=== PATIENT | male | born 1975 | race Two or more races ===

== ENCOUNTER → 2021-04-07 14:12 | Outpatient (BNVA) | payer MEDICARE, MEDICAID, SELFPAY | PROVIDERS: PCP Internal Medicine; Visit Provider Nurse Practitioner Family | DX: M51.37 Other intervertebral disc degeneration, lumbosacral region (principal); M25.521 Pain in right elbow | CPT/HCPCS: 99212 ==

== ENCOUNTER 2021-04-15 11:50 | Outpatient (REF) | payer MEDICARE, MEDICAID, SELFPAY ==
--- NOTE | ~2021-04-15 | XR_ITS ---
EXAMINATION: XR LUMBOSACRAL SPINE CLINICAL INFORMATION: Other intravertebral disc degeneration COMPARISON: Lumbar spine x-rays 09/06/2015 TECHNIQUE: Three views of the lumbosacral spine. FINDINGS: 5 nonrib-bearing lumbar vertebral bodies are visualized. Alignment is within normal limits. Lumbar vertebral body heights are maintained. Moderately decreased L5/S1 disc space height, mildly progressed from 2016 imaging. Small osteophytes are also noted at the L5/S1 level and there are mild degenerative changes of the posterior elements of the lower lumbar spine present. Sacroiliac joints are symmetric. XR/XR lumbar spine 2-3V IMPRESSION: Mild degenerative changes of the lumbar spine at the L5/S1 level, mildly progressed from 2016 imaging.
[2021-04-15 12:59] LABS: Alanine Aminotransferase 35 U/L (0-40); Albumin Level 4.7 g/dL (3.5-5.0); Alkaline Phosphatase 75 U/L (39-117); Anion Gap 12 (12-20); Aspartate Amino Transferase 19 U/L (5-37); Bilirubin Total 0.4 mg/dL (0.0-1.0); Blood Urea Nitrogen 19 mg/dL (9-16); Calcium 9.5 mg/dL (8.4-10.2); Carbon Dioxide 26 mmol/L (22-29); Chloride 106 mmol/L (96-108); Estimated Glomerular Filt Rate > 60; Glucose Random 89 mg/dL (60-115); Potassium 4.6 mmol/L (3.3-5.1); Sodium 139 mmol/L (135-145); Total Protein 7.8 g/dL (6.5-8.0)
== END 2021-04-15 11:51 | disposition home or self-care (01) ==
LOC: HO.LAB 11:50
PROVIDERS: Visit Provider Nurse Practitioner Family
DX: M51.37 Other intervertebral disc degeneration, lumbosacral region (principal)
CPT/HCPCS: 36415; 72100; 80053

== ENCOUNTER → 2022-06-06 15:35 | Outpatient (BNVA) | payer MEDICARE, MEDICAID, SELFPAY | PROVIDERS: PCP Internal Medicine; Visit Provider Nurse Practitioner Family | DX: M51.37 Other intervertebral disc degeneration, lumbosacral region (principal); Z51.81 Encounter for therapeutic drug level monitoring | CPT/HCPCS: 99212 ==

== ENCOUNTER 2022-06-29 10:11 | Outpatient (REF) | payer MEDICARE, MEDICAID, SELFPAY ==
[2022-06-29 11:10] LABS: Alanine Aminotransferase 51 U/L (0-40); Albumin Level 4.7 g/dL (3.5-5.0); Alkaline Phosphatase 85 U/L (39-117); Anion Gap 15 (12-20); Aspartate Amino Transferase 24 U/L (5-37); Bilirubin Total 0.4 mg/dL (0.0-1.0); Blood Urea Nitrogen 21 mg/dL (9-16); Calcium 9.5 mg/dL (8.4-10.2); Carbon Dioxide 26 mmol/L (22-29); Chloride 103 mmol/L (96-108); Estimated Glomerular Filt Rate > 60; Glucose Random 201 mg/dL (60-115); Potassium 4.2 mmol/L (3.3-5.1); Sodium 140 mmol/L (135-145); Total Protein 7.6 g/dL (6.5-8.0)
== END 2022-06-29 10:12 | disposition home or self-care (01) ==
LOC: HO.LAB 10:11
PROVIDERS: Visit Provider Nurse Practitioner Family
DX: M51.37 Other intervertebral disc degeneration, lumbosacral region (principal); Z79.899 Other long term (current) drug therapy
CPT/HCPCS: 80053

== ENCOUNTER 2022-07-17 08:07 | Outpatient (REF) | payer MEDICARE, MEDICAID, SELFPAY ==
[2022-07-17 10:55] LABS: Amphetamine Screen Urine Not Detected (Not Detect); Barbiturates, Urine Not Detected (Not Detect); Benzodiazepines Screen Urine Not Detected (Not Detect); Cannabinoid Screen Urine POSITIVE (Not Detect); Cocaine Screen Urine Not Detected (Not Detect); Fentanyl, urine Not Detected (Not Detect); Opiate Screen Urine Not Detected (Not Detect); Phencyclidine Screen Urine Not Detected (Not Detect)
== END 2022-07-17 08:08 | disposition home or self-care (01) ==
LOC: HO.LAB 08:07
PROVIDERS: Visit Provider Nurse Practitioner Family
DX: Z51.81 Encounter for therapeutic drug level monitoring (principal); Z79.891 Long term (current) use of opiate analgesic
CPT/HCPCS: 80307; 80373

== ENCOUNTER 2023-01-02 09:37 | Outpatient (AMB) | payer MEDICARE, MEDICAID, SELFPAY ==
[2023-01-02 09:41] VITALS: BP 124/62; PULSE 91; O2SAT 96; BMI 38.4
--- NOTE | 2023-01-02 09:41 | A.OFFVIS_ITS ---
Intake Vital Signs 01/02/23 09:41 Height 5 ft 6 in Weight 238 lb 1.588 oz BMI 38.4 BP 124/62 Blood Pressure Location Rt brachial Position Sitting Pulse 91 Pulse Source Pulse Oximeter Pulse Oximetry (%) 96 Intake Visit Reasons: Low back pain Intake Note: Pt presents today for follow up, he was last seen by Marisela on 06/06/22. PT was ordered but pt did not book appt. He states he told Marisela he did not want to do PT. Still continues to have low back pain. Pensionholder Information Clerk Required: Yes Pensionholder Information Clerk Name: Radha [id number] Accompanied by: Self / Same As Patient Allergies No Known Allergies Allergy (Verified 01/02/23 09:44) Medication List - Last Reconciled 01/02/23 by Warren Aiken MD bupropion HCl 150 mg PO BID cetirizine 10 mg PO DAILY lidocaine 5% 1 patch topical DAILY prazosin 10 mg PO BEDTIME quetiapine (Seroquel) 300 mg PO DAILY tramadol 50 mg PO Q6H PRN HPI HPI Comments History of Present Illness Details Pt presents today for follow up, he was last seen by Marisela on 06/06/22. PT was ordered but pt did not book appt. He states he told Marisela he did not want to do PT. Still continues to have low back pain.? Continues to take tramadol 4 times a day. States that his back pain is worse with walking PFSH Family History Mother Diabetes Father Diabetes Cancer Maternal Grandmother Ovarian cancer Paternal Aunt Cancer Brother Cancer Social History Alcohol intake: current Alcohol intake frequency: does not drink Patient Tobacco Use Status: Current everyday Tobacco user Cigarettes Per Day: 8 Review of Systems [facility] Reports back pain Physical Exam Vital Signs: Last Vital Signs Pulse 91 01/02/23 09:41 BP 124/62 01/02/23 09:41 Pulse Ox 96 01/02/23 09:41 BMI result Body Mass Index 38.4 Const General: cooperative, healthy appearing and comfortable Nutritional Appearance: obese Orientation/consciousness: patient oriented x3 Limitations: no limitations HEENT Head: Yes normocephalic and Yes atraumatic Resp Effort & Inspection: normal respiratory effort and able to speak in complete sentences Skin General skin exam: no rashes or lesions noted Neuro General: patient oriented x3 Extrem Other: Lumbar paraspinal muscle tenderness to palpation, worse on the right Positive straight leg raise test on the right Results Reviewed Results Reviewed: Laboratory Tests 04/15/21 12:11 [facility] [place]/16/2015 CPK 168, CRP 0.32 rheumatoid factor < 15.0, sed rate 6, JENI negative Ordering Physician: Marisela Vu NP Date of Service: 04/15/21 Procedure(s): XR lumbar spine 2-3V Accession Number(s): [id number] EXAMINATION: XR LUMBOSACRAL SPINE CLINICAL INFORMATION: Other intravertebral disc degeneration COMPARISON: Lumbar spine x-rays 09/06/2015 TECHNIQUE: Three views of the lumbosacral spine. FINDINGS: 5 nonrib-bearing lumbar vertebral bodies are visualized. Alignment is within normal limits. Lumbar vertebral body heights are maintained. Moderately decreased L5/S1 disc space height, mildly progressed from 2016 imaging. Small osteophytes are also noted at the L5/S1 level and there are mild degenerative changes of the posterior elements of the lower lumbar spine present. Sacroiliac joints are symmetric. XR/XR lumbar spine 2-3V IMPRESSION: Mild degenerative changes of the lumbar spine at the L5/S1 level, mildly progressed from 2016 imaging. Assessment & Plan Assessment & Plan (1) Degenerative disc disease at L5-S1 level: Code(s): M51.37 - Other intervertebral disc degeneration, lumbosacral region Plan: Patient with chronic low back pain. X-ray from May 2021 with degenerative changes slightly progressed from previous imaging in 2016. Patient manage it his pain with tramadol. Will refill tramadol today. Has not had any side effects related to tramadol. I again offered pain management referral to patient. He states that he knows someone who received injections in the back and had side effects. He is not interested Follow-up in 6 months Plan I spent 16 minutes reviewing patient's chart, evaluating patient, ordering diagnostic workup, counseling patient and documenting in the chart Coding Level of Care Code Est Pt Level 3 (64693) Diagnoses Degenerative disc disease at L5-S1 level M51.37
== END 2023-01-02 10:29 | disposition home or self-care (01) ==
PROVIDERS: PCP Internal Medicine; Visit Provider Student in an Organized Health Care Education/Training Program
DX: M51.37 Other intervertebral disc degeneration, lumbosacral region (principal)
CPT/HCPCS: 99213

== ENCOUNTER → 2023-01-02 09:37 | Outpatient (BNVA) | payer MEDICARE, MEDICAID, SELFPAY | PROVIDERS: PCP Internal Medicine; Visit Provider Student in an Organized Health Care Education/Training Program | DX: M51.37 Other intervertebral disc degeneration, lumbosacral region (principal) | CPT/HCPCS: 99212 ==

== ENCOUNTER 2023-06-20 10:02 | Outpatient (REF) | payer MEDICARE, MEDICAID, SELFPAY ==
--- NOTE | ~2023-06-20 | US_ITS ---
EXAMINATION: US ABDOMEN COMPLETE CLINICAL INFORMATION: Elevated LFTs, fatty liver. COMPARISON: Ultrasound abdomen complete 09/27/2016. TECHNIQUE: Real-time imaging of the abdominal viscera. FINDINGS: PANCREAS: Normal. ABDOMINAL AORTA: The proximal, mid, and distal segments are normal in caliber. INFERIOR VENA CAVA: Visualized portions are normal. LIVER: The liver is normal in size. The liver contour is normal. There is diffuse increased liver parenchymal echogenicity, consistent with hepatic steatosis. There is focal sparing along the gallbladder fossa. There is no intrahepatic biliary duct dilatation seen. GALLBLADDER: Normal. The gallbladder is physiologically distended without evidence of stones, sludge, polyps, wall thickening or pericholecystic fluid. COMMON BILE DUCT: Normal in caliber measuring 0.3 cm in diameter. RIGHT KIDNEY: 2 mm parenchymal calcification in the mid right kidney. This does not appear to be a collecting system calculus. No hydronephrosis. No renal calculi or focal parenchymal lesions. The kidney measures 11.0 cm in maximum dimension. LEFT KIDNEY: Normal. No hydronephrosis. No renal calculi or focal parenchymal lesions. The kidney measures 11.0 cm in maximum dimension. SPLEEN: Normal. The spleen measures 10.1 cm in maximum dimension. FREE FLUID: None. US/US abdomen complete IMPRESSION: Hepatic steatosis. No morphologic cirrhosis or biliary ductal dilatation.
== END 2023-06-20 10:03 | disposition home or self-care (01) ==
LOC: HO.US 10:02
PROVIDERS: Visit Provider Internal Medicine
DX: R94.5 Abnormal results of liver function studies (principal); K76.0 Fatty (change of) liver, not elsewhere classified
CPT/HCPCS: 76700

== ENCOUNTER 2023-07-06 09:35 | Outpatient (REF) | payer MEDICARE, MEDICAID, SELFPAY ==
[2023-07-06 11:37] LABS: MANUAL DIFF FLAG NO
[2023-07-06 11:52] LABS: Basophils Absolute Auto 0.1 X10*3/uL (0.0-0.2); Basophils Percent Auto 0.9 % (0-2); Eosinophils Absolute Auto 0.4 X10*3/uL (0.0-0.4); Eosinophils Percent Auto 7.8 % (0-4); Hematocrit 48.9 % (42.0-52.0); Hemoglobin 16.1 g/dl (14.0-18.0); Imm Gran Abs Auto 0.02 X10*3/uL (0.00-0.03); Imm Gran Pct Auto 0.4 % (0.0-0.4); Lymphocytes Absolute Auto 2.6 X10*3/uL (1.2-4.9); Lymphocytes Percent Auto 49.5 % (20-40); Mean Corpuscular HGB Conc 32.9 g/dl (31.0-36.0); Mean Corpuscular Hemoglobin 30.3 pg (27.0-33.0); Mean Corpuscular Volume 92.1 fL (80.0-98.0); Mean Platelet Volume 10.2 fL (9.4-12.4); Monocytes Absolute Auto 0.4 X10*3/uL (0.1-1.2); Monocytes Percent Auto 8.1 % (2-11); Neutrophils Absolute Auto 1.8 x10*3/uL (2.0-8.3); Neutrophils Percent Auto 33.3 % (45-73); Platelet Count 223 X10*3/uL (160-400); Red Blood Count 5.31 X10*6/uL (4.60-5.80); Red Cell Distribution Width 13.1 % (11.0-16.0); White Blood Count 5.3 X10*3/uL (4.8-10.8)
[2023-07-06 12:09] LABS: Estimated Average Glucose 108 mg/dL; Hemoglobin A1c % 5.4 % (<6.0)
[2023-07-06 12:49] LABS: Alanine Aminotransferase 23 U/L (0-40); Albumin Level 4.6 g/dL (3.5-5.0); Alkaline Phosphatase 85 U/L (39-117); Anion Gap 12 (12-20); Aspartate Amino Transferase 17 U/L (5-37); Bilirubin Total 0.4 mg/dL (0.0-1.0); Blood Urea Nitrogen 14 mg/dL (9-16); Calcium 9.7 mg/dL (8.4-10.2); Carbon Dioxide 29 mmol/L (22-29); Chloride 105 mmol/L (96-108); Cholesterol 197 mg/dL (<200); Estimated Glomerular Filt Rate > 60; Glucose Random 95 mg/dL (60-115); HDL Cholesterol 34 mg/dL (>40); LDL Cholesterol Calculated 133 mg/dL (<100); Potassium 4.8 mmol/L (3.3-5.1); Sodium 141 mmol/L (135-145); Triglycerides 154 mg/dL (<150)
[2023-07-06 13:12] LABS: TSH reflex Free T4 2.61 uIU/mL (0.32-4.0)
[2023-07-06 13:52] LABS: CT PCR NOT DETECTED (Not Detect.); NG PCR NOT DETECTED (Not Detect.)
[2023-07-07 04:15] LABS: Syphilis Screen Nonreactive (Nonreactive)
[2023-07-07 04:29] LABS: HBS Num1 0.37 mIU/mL (0-7.99); HBc Num1 0.11 S/CO (0.00-0.79); HBsAGNum1 0.38 S/CO (0.00-0.99); Hepatitis B Core Antibody Nonreactive (Nonreactive); Hepatitis B Surface Antigen Negative (Negative); ~HepC Num1 0.37 S/CO (0.00-0.79); ~Hepatitis B Surface Antibody NONREACTIVE (Nonreactive); ~Hepatitis C Antibody Nonreactive (Nonreactive)
[2023-07-10 17:47] LABS: VITAMIN D (1,25 OH) D3 49 pg/mL; Vit D (1,25-Dihydroxy) Total 49 pg/mL (18-72); Vitamin D (1,25 OH) D2 <8 pg/mL
[2023-07-11 11:43] LABS: HIV 1 Antibody NEGATIVE; HIV 2 Antibody NEGATIVE
[2023-07-11 11:44] LABS: HIV-1 RNA TMA Qualitative Not Detected
== END 2023-07-06 09:36 | disposition home or self-care (01) ==
LOC: HO.HHCL 09:35
PROVIDERS: Visit Provider Student in an Organized Health Care Education/Training Program
DX: Z00.00 Encounter for general adult medical examination without abnormal findings (principal); Z20.2 Contact with and (suspected) exposure to infections with a predominantly sexual mode of transmission; E78.5 Hyperlipidemia, unspecified; Z13.21 Encounter for screening for nutritional disorder; Z13.1 Encounter for screening for diabetes mellitus; Z13.29 Encounter for screening for other suspected endocrine disorder
CPT/HCPCS: 0353U; 80053; 80061; 82652; 83036; 84443; 85025; 86701; 86702; 86704; 86706; 86780; 86803; 87340

== ENCOUNTER 2023-07-09 08:56 | Outpatient (REF) | payer MEDICARE, MEDICAID, SELFPAY ==
[2023-07-09 09:25] LABS: MANUAL DIFF FLAG NO
[2023-07-09 10:45] LABS: Basophils Percent Auto 0.8 % (0-2); Eosinophils Absolute Auto 0.4 X10*3/uL (0.0-0.4); Eosinophils Percent Auto 7.9 % (0-4); Hematocrit 45.2 % (42.0-52.0); Hemoglobin 15.1 g/dl (14.0-18.0); Imm Gran Abs Auto 0.02 X10*3/uL (0.00-0.03); Imm Gran Pct Auto 0.4 % (0.0-0.4); Lymphocytes Absolute Auto 2.2 X10*3/uL (1.2-4.9); Lymphocytes Percent Auto 44.6 % (20-40); Mean Corpuscular HGB Conc 33.4 g/dl (31.0-36.0); Mean Corpuscular Hemoglobin 30.5 pg (27.0-33.0); Mean Corpuscular Volume 91.3 fL (80.0-98.0); Mean Platelet Volume 10.4 fL (9.4-12.4); Monocytes Absolute Auto 0.4 X10*3/uL (0.1-1.2); Monocytes Percent Auto 8.3 % (2-11); Neutrophils Absolute Auto 1.9 x10*3/uL (2.0-8.3); Platelet Count 219 X10*3/uL (160-400); Red Blood Count 4.95 X10*6/uL (4.60-5.80); Red Cell Distribution Width 12.9 % (11.0-16.0)
[2023-07-09 11:01] LABS: INTERNATIONAL NORM RATIO 0.9 (0.9-1.1); Prothrombin Time 10.5 SEC (11.1-13.3)
[2023-07-09 11:35] LABS: Alanine Aminotransferase 21 U/L (0-40); Albumin Level 4.5 g/dL (3.5-5.0); Alkaline Phosphatase 81 U/L (39-117); Aspartate Amino Transferase 15 U/L (5-37); Bilirubin Direct 0.2 mg/dL (0.0-0.5); Bilirubin Total 0.4 mg/dL (0.0-1.0); HBS Num1 0.33 mIU/mL (0-7.99); HBc Num1 0.09 S/CO (0.00-0.79); HBsAGNum1 0.39 S/CO (0.00-0.99); Hepatitis B Core Antibody Nonreactive (Nonreactive); Hepatitis B Surface Antigen Negative (Negative); Iron 119 mcg/dL (45-160); Percent Iron Saturation 42 % (15-50); Total Iron Binding Capacity 284 mcg/dL (228-428); Unsaturated Iron Binding 165 ug/dL; ~Hepatitis B Surface Antibody NONREACTIVE (Nonreactive); ~Hepatitis C Antibody Nonreactive (Nonreactive)
[2023-07-09 11:36] LABS: Ferritin 220 ng/mL (20-250)
[2023-07-19 11:04] LABS: FIB-ALT 8 U/L (9-46); FIB-Alpha-2-Macroglobulin 150 mg/dL (106-279); FIB-Apolipoprotein A1 122 mg/dL (94-176); FIB-GGT 23 U/L (3-95); FIB-Haptoglobin 264 mg/dL (43-212); FIB-Total Bilirubin 0.4 mg/dL (0.2-1.2); Liver Fibrosis Score 0.09; Liver Fibrosis Stage F0; Nec Inflam Act Grade A0; Nec Inflam Act Score 0.01
== END 2023-07-09 08:57 | disposition home or self-care (01) ==
LOC: HO.LAB 08:56
PROVIDERS: PCP Internal Medicine; Visit Provider Internal Medicine
DX: R94.5 Abnormal results of liver function studies (principal); K76.0 Fatty (change of) liver, not elsewhere classified
CPT/HCPCS: 36415; 80076; 81596; 82728; 83540; 85025; 85610; 86704; 86706; 86803; 87340

== ENCOUNTER 2023-08-21 09:00 | Outpatient (AMB) | payer MEDICARE, MEDICAID, SELFPAY ==
[2023-08-21 09:15] VITALS: BP 104/70; PULSE 87; O2SAT 95; BMI 35.2
--- NOTE | 2023-08-21 09:15 | A.OFFVIS_ITS ---
Vital Signs 08/21/23 09:15 Height 5 ft 6 in Weight 217 lb 13.067 oz BMI 35.2 BP 104/70 Blood Pressure Location Rt brachial Position Sitting Pulse 87 Pulse Source Pulse Oximeter Pulse Oximetry (%) 95 Oxygen Delivery Method Room Air Intake Visit Reasons: Back Pain follow up Intake Note: Patient last seen 01/02/23 presents today for follow up. On tramadol for back pain Air Control/Anti Air Warfare Officer Required: Yes Air Control/Anti Air Warfare Officer Language: Superannuation Funds Manager Name: Mary Anne Huber - form signed Accompanied by: Significant Other Allergies No Known Allergies Allergy (Verified 08/21/23 09:23) Medication List - Last Reconciled 08/21/23 by Warren Aiken MD atorvastatin 20 mg PO DAILY bupropion HCl SR 150 mg PO BID cetirizine 10 mg PO DAILY gabapentin 400 mg PO TID lidocaine 5% 1 patch topical DAILY prazosin 10 mg PO BEDTIME quetiapine (Seroquel) 300 mg PO DAILY tramadol 50 mg PO Q6H PRN HPI Comments Details: 48-year-old male lumbar osteoarthritis presents for follow-up. He presents with his . He states that he has been having more severe right lower back pain associated with muscle spasm and cramping. He continues to take the tramadol regularly. Requesting lidocaine patch PFSH Family History Mother Diabetes Father Diabetes Cancer Maternal Grandmother Ovarian cancer Paternal Aunt Cancer Brother Cancer Social History Alcohol intake: current Alcohol intake frequency: does not drink Patient Tobacco Use Status: Current everyday Tobacco user Cigarettes Per Day: 8 Review of Systems [facility] [place] Reports back pain Physical Exam Vital Signs: Last Vital Signs Pulse 87 08/21/23 09:15 BP 104/70 08/21/23 09:15 Pulse Ox 95 08/21/23 09:15 Oxygen Delivery Method Room Air 08/21/23 09:15 BMI result Body Mass Index 35.2 Const General: cooperative, healthy appearing and comfortable Nutritional Appearance: obese Orientation/consciousness: patient oriented x3 Limitations: no limitations HEENT Head: Yes normocephalic and Yes atraumatic Resp Effort & Inspection: normal respiratory effort and able to speak in complete sentences Skin General skin exam: no rashes or lesions noted Neuro General: patient oriented x3 Extrem Other: Lumbar paraspinal muscle tenderness to palpation, worse on the right Positive straight leg raise test on the right Results Reviewed Results Reviewed: Laboratory Tests 04/15/21 12:11 [facility] [place] labs 09/16/2015 CPK 168, CRP 0.32 rheumatoid factor < 15.0, sed rate 6, JENI negative Ordering Physician: Marisela Vu NP Date of Service: 04/15/21 Procedure(s): XR lumbar spine 2-3V Accession Number(s): [id number] EXAMINATION: XR LUMBOSACRAL SPINE CLINICAL INFORMATION: Other intravertebral disc degeneration COMPARISON: Lumbar spine x-rays 09/06/2015 TECHNIQUE: Three views of the lumbosacral spine. FINDINGS: 5 nonrib-bearing lumbar vertebral bodies are visualized. Alignment is within normal limits. Lumbar vertebral body heights are maintained. Moderately decreased L5/S1 disc space height, mildly progressed from 2016 imaging. Small osteophytes are also noted at the L5/S1 level and there are mild degenerative changes of the posterior elements of the lower lumbar spine present. Sacroiliac joints are symmetric. XR/XR lumbar spine 2-3V IMPRESSION: Mild degenerative changes of the lumbar spine at the L5/S1 level, mildly progressed from 2016 imaging. Assessment & Plan Assessment & Plan (1) Degenerative disc disease at L5-S1 level: Code(s): M51.37 - Other intervertebral disc degeneration, lumbosacral region Category: Medical Plan: 48-year-old male with degenerative disc disease of her L-spine returns for follow-up. Remains on tramadol 4 times a day. His back pain has progressed slightly over the last few weeks. Will prescribe a lidocaine patch. Advised patient that it might get denied by insurance and he can try [id number] Salonpas patch. Patient was evaluated by pain management in the past and did not want to do injections. This patient to follow-up with his PCP and if his back pain progresses he can consider evaluation by a spine surgeon. Plan I spent 16 minutes reviewing patient's chart, evaluating patient, counseling patient and documenting in the chart Medications: Refilled lidocaine 5% leave on most painful area for up to 12 hrs then take off for 12 hours. 1 patch topical DAILY 30 ea 1RF Coding Level of Care Code Est Pt Level 3 (33055) Diagnoses Degenerative disc disease at L5-S1 level M51.37
== END 2023-08-21 09:41 | disposition home or self-care (01) ==
PROVIDERS: PCP Internal Medicine; Visit Provider Student in an Organized Health Care Education/Training Program
DX: M51.37 Other intervertebral disc degeneration, lumbosacral region (principal)
CPT/HCPCS: 99213

== ENCOUNTER → 2023-08-21 09:00 | Outpatient (BNVA) | payer MEDICARE, MEDICAID, SELFPAY | PROVIDERS: PCP Internal Medicine; Visit Provider Student in an Organized Health Care Education/Training Program | DX: M51.37 Other intervertebral disc degeneration, lumbosacral region (principal) | CPT/HCPCS: 99212 ==

== ENCOUNTER 2023-09-19 06:05 | Day surgery (SDC) | payer MEDICARE, MEDICAID, SELFPAY ==
--- NOTE | 2023-09-18 11:37 | HO.ANESPROP2 ---
Documented by User: Rebekah Baires NP 09/18/23 11:38 HPI - Anesthesia Eval Consult details Narrative: 48yo M for Colonoscopy PMF Active Problems Active Problems: All Active Problems Schizophrenia (Acute) Encounter for medication monitoring (Acute) Degenerative disc disease at L5-S1 level (Acute) Family History Family History Mother Diabetes Father Diabetes Cancer Maternal Grandmother Ovarian cancer Paternal Aunt Cancer Brother Cancer Social History Social History Alcohol intake: current Alcohol intake frequency: does not drink Patient Tobacco Use Status: Current everyday Tobacco user Cigarettes Per Day: 8 Advance Directives: No Advance Directives Information Provided: Yes Meds Allergies Allergy/AdvReac Type Severity Reaction Status Date / Time No Known Allergies Allergy Verified 09/19/23 07:01 Home Medications ?Medication ?Instructions ?Recorded ?Confirmed ?Last Taken ?Type prazosin 5 mg capsule 10 mg PO BEDTIME 05/13/21 09/19/23 Unknown History quetiapine 300 mg tablet (Seroquel) 300 mg PO DAILY 05/13/21 09/19/23 Unknown History bupropion HCl 150 mg tablet,12 hr 150 mg PO BID 01/02/23 09/19/23 Unknown History sustained-release cetirizine 10 mg tablet 10 mg PO DAILY 01/02/23 09/19/23 Unknown History atorvastatin 20 mg tablet 20 mg PO DAILY 08/21/23 09/19/23 Unknown History gabapentin 400 mg capsule 400 mg PO TID 08/21/23 09/19/23 Unknown History Assessment and Plan Assessment Anesthesia Assessment: Chart Reviewed Documented by User: Kaleb Barrett MD 09/19/23 07:39 PMFSH Family History Family History Mother Diabetes Father Diabetes Cancer Maternal Grandmother Ovarian cancer Paternal Aunt Cancer Brother Cancer Family history of problems with anesthesia: No Surgical History History of Problems with Anesthesia: No Social History Social History Alcohol intake: current Alcohol intake frequency: does not drink Patient Tobacco Use Status: Current everyday Tobacco user Cigarettes Per Day: 8 Advance Directives: No Advance Directives Information Provided: Yes Meds Allergies Allergy/AdvReac Type Severity Reaction Status Date / Time No Known Allergies Allergy Verified 09/19/23 07:01 Home Medications ?Medication ?Instructions ?Recorded ?Confirmed ?Last Taken ?Type prazosin 5 mg capsule 10 mg PO BEDTIME 05/13/21 09/19/23 Unknown History quetiapine 300 mg tablet (Seroquel) 300 mg PO DAILY 05/13/21 09/19/23 Unknown History bupropion HCl 150 mg tablet,12 hr 150 mg PO BID 01/02/23 09/19/23 Unknown History sustained-release cetirizine 10 mg tablet 10 mg PO DAILY 01/02/23 09/19/23 Unknown History atorvastatin 20 mg tablet 20 mg PO DAILY 08/21/23 09/19/23 Unknown History gabapentin 400 mg capsule 400 mg PO TID 08/21/23 09/19/23 Unknown History Exam Airway Mallampati Class: II TM Dist: >3cm Neck ROM: Full Loose/Missing/Broken Teeth: No Heart: ok Lungs: ok Assessment and Plan Assessment Anesthesia Assessment: Anesthesia Plan Discussed Final Anesthetic Review Family History of Problems with Anesthesia: No History of Problems with Anesthesia: No NPO: Yes ASA Class: II Final Preanesthetic Review: No Changes in Pt Med Stat, Meds/Allgs Chart Reviewed, Consent Obtained/Reviewed and Anes Risks/Benef Reviewed Patient Risk: Intermediate Procedure Risk: Low Anesthetic Plan Anesthetic Plan: MAC: and Agree w/ Assess. and Plan Disposition: Standard PACU
[2023-09-19 07:02] VITALS: BMI 34.5
[2023-09-19 07:09] VITALS: BP 107/63; PULSE 72; RESP 16; TEMP 36.9; O2SAT 97
[2023-09-19] MEDS: Lactated Ringers 1,000 ML 100 ML IVCONT (07:13)
--- NOTE | 2023-09-19 07:51 | PC.NURSE ---
24hr update documented on paper
[2023-09-19 08:28] VITALS: BP 96/47; PULSE 76; RESP 22; TEMP 36.2; O2SAT 95
--- NOTE | 2023-09-19 08:34 | P.BOP_ITS ---
Brief Operative Note Date of Service: 09/19/23 Pre-op diagnosis: Screening Post-op diagnosis: other (Diverticulosis) Procedure: Colonoscopy to the cecum Surgeon: Chacho Galeano MD Anesthesia: MAC Was an Body Service Team Member used for this Procedure?: No Estimated blood loss (mL): 0 Pathology: none sent Condition: stable Disposition: PACU
[2023-09-19 08:43] VITALS: BP 95/61; PULSE 65; RESP 18; TEMP 36.2; O2SAT 98
--- NOTE | 2023-09-19 08:54 | OP_ITS ---
DATE OF SERVICE: 09/19/2023 SURGEON: Chacho Galeano MD INDICATIONS: The patient presents for evaluation of colorectal cancer screening. Full consent obtained from him for this, including risks of bleeding and perforation. PREOPERATIVE DIAGNOSIS: Colorectal cancer screening. POSTOPERATIVE DIAGNOSIS: Colorectal cancer screening, occasional sigmoid diverticulosis, small internal hemorrhoids. PROCEDURE PERFORMED: Colonoscopy to the cecum. ESTIMATED BLOOD LOSS: COMPLICATIONS: ANESTHESIA: Monitored anesthesia care. ASSISTANTS: SPECIMENS: DESCRIPTION OF PROCEDURE: The patient was placed in left lateral decubitus position. The digital rectal exam revealed no abnormalities. The Olympus video pediatric colonoscope was entered into the rectum and advanced easily to the cecum. Once in the cecum, I did identify normal-appearing cecal pouch with appendiceal orifice and a normal-appearing ileocecal valve. The entire cecum and ileocecal valve appeared normal. The scope was slowly withdrawn assessing all mucosal surfaces carefully. For the most part, preparation was excellent throughout the colon, although there were some small areas of liquid in residual debris that had to be irrigated and suctioned away. I did not visualize any sign of polyps, colitis, nor angiodysplasia. There were occasional diverticula in the sigmoid colon. In the rectum, scope was retroflexed visualizing some small internal hemorrhoids, but no other pathology. The rectal mucosa appeared normal. The scope was straightened and withdrawn from the patient. He tolerated the procedure well and was returned to recovery area in stable condition. IMPRESSION: 1. Occasional sigmoid diverticulosis. 2. Internal hemorrhoids. PLAN: Given the negative exam, I would recommend a followup coloscopy in 10 years. He will otherwise see me on a p.r.n. basis. Chacho Galeano MD RMW/JESSICAL / [id number]
== END 2023-09-19 09:12 | disposition home or self-care (01) ==
PROVIDERS: PCP Internal Medicine; Visit Provider Internal Medicine
PROC: 0DJD8ZZ Inspection of Lower Intestinal Tract, Via Natural or Artificial Opening Endoscopic (ICD-10-PCS; CPT 45378; principal; 2023-09-19 07:30)
DX: Z12.11 Encounter for screening for malignant neoplasm of colon (principal); K57.30 Diverticulosis of large intestine without perforation or abscess without bleeding; K64.8 Other hemorrhoids; K76.0 Fatty (change of) liver, not elsewhere classified; F17.210 Nicotine dependence, cigarettes, uncomplicated
CPT/HCPCS: G0121; J2704

== ENCOUNTER → 2024-02-04 14:06 | Outpatient (BNVA) | payer MEDICARE, MEDICAID, SELFPAY | PROVIDERS: PCP Student in an Organized Health Care Education/Training Program; Visit Provider Psychiatry & Neurology Neurology ==

== ENCOUNTER 2024-02-18 12:47 | Outpatient (AMB) | payer MEDICARE, MEDICAID, SELFPAY ==
--- NOTE | 2024-02-18 12:58 | A.OFFVIS_ITS ---
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 Allergies No Known Allergies Allergy (Verified 02/18/24 13:00) Medication List - Last Reconciled 02/18/24 by Kianna Jaquez PA-C atorvastatin 20 mg PO DAILY bupropion HCl SR 150 mg PO BID cetirizine 10 mg PO DAILY gabapentin 400 mg PO TID lidocaine 5% 1 patch topical DAILY prazosin 10 mg PO BEDTIME quetiapine (Seroquel) 300 mg PO DAILY tramadol 50 mg PO Q6H PRN HPI Comments Details: 48 year old male with history of witnessed apneas, referred to us by his PCP for a Polysomnography and Evaluation. Bermudian speaking accompanied by his and Zabrina GONZALEZ interprets history. He has a history of schizophrenia managed by Dr. Mukul Doherty for 8 years. He has been snoring loudly per his who witnessed his apneas, gasping for air, and choking repeatedly. He continues to be more forgetful. He was told to sleep downstairs as he often disrupts their child's and 's sleep. His legs and arms tremble during sleep, he hallucinates as if someone is chasing him with a Machede, and has frequent nightmares. He denies GERD, morning headaches, and excessive daytime sleepiness. 7pm goes to bedtime and wakes up at 7am, denies nocturia, urgency or frequency. His mood is calm at baseline, with mild depression. PCP checked Labs recently TSH / B12/ Vit D/ Iron, all normal. His diet at baseline is bad, he eats meals late at night, and doesn't drink enough water. His BMI is elevated, smokes 8-19 cigarettes daily, MJ 6-7 blunts daily. Denies Alcohol intake. Mallampti score is 4. Patient is seen by myself with Dr. Shay. [facility] Medical History (Updated 02/18/24 @ 14:01 by Kianna Jaquez PA-C) Memory loss Hyperlipidemia Depression Arthritis Family History Mother Diabetes Father Diabetes Cancer Maternal Grandmother Ovarian cancer Paternal Aunt Cancer Brother Cancer Social History Alcohol intake: current Alcohol intake frequency: does not drink Patient Tobacco Use Status: Current everyday Tobacco user Cigarettes Per Day: 8 Review of Systems Const All systems reviewed & are unremarkable except as noted in HPI and below ENT Reports Normal hearing present Neuro Reports Normal hearing present Physical Exam Const General: cooperative, comfortable and no acute distress Nutritional Appearance: average body habitus and obese Orientation/consciousness: patient oriented x3 HEENT Teeth and gingiva: other (Mallampti score of 4) Eyes Pupils: Equal, round and reactive pupils present Neck Neck: Yes full ROM Resp Effort & Inspection: normal respiratory effort and able to speak in complete sentences Neuro General: patient oriented x3 and deep tendon reflexes 2+ bilaterally Cranial nerves: Yes CN's II-XII intact bilaterally, Yes Equal, round and reactive pupils present, Yes Normal accommodation reflex present, Yes Bilaterally intact EOM present, Yes Normal facial strength present, Yes Midline tongue present, Yes Normal hearing present, Yes Ability to bilaterally rotate head present and Yes Ability to bilaterally elevate shoulders present Cognition (Neuro): normal cognition Gait exam (Neuro): Normal gait present Motor exam (neuro): 5/5 motor strength present throughout, Pronator motor function not present and Normal motor muscle tone present throughout Deep tendon reflexes (DTR's): Right triceps reflex intensity grade: 2+, Left triceps reflex intensity grade: 2+, Rt Biceps (C5, C6): 2+, Left biceps reflex intensity grade: 2+, Right brachioradialis reflex intensity grade: 2+, Left brachioradialis reflex intensity grade: 2+, Right patellar reflex intensity grade: 2+ and Left patellar reflex intensity grade: 2+ Coordination: [id number] test normal Assessment & Plan Assessment & Plan (1) Difficulty sleeping: Code(s): G47.9 - Sleep disorder, unspecified Category: Medical (2) Periodic limb movements of sleep: Code(s): G47.61 - Periodic limb movement disorder Category: Medical (3) Sleep talking: Code(s): G47.8 - Other sleep disorders Category: Medical Plan Patient Education: Obstructive Sleep Apnea Evaluation, do not smoke Marijuana 2-3 days prior to study during day of study. BMI is elevated, smoking cessation is available if and when you are ready to stop smoking, set a date and we will set up counselor visits. Will send him for in lab sleep study Polysomnography to evaluate for PLMD, thrashing behavior, abnormal sleep behaviors, leg movements and cognitive decline. Orders: Orders RT PSG in-lab sleep study 02/18/24 G47.61 - Periodic limb movement disorder, G47.8 - Other sleep disorders, G47.9 - Sleep disorder, unspecified Coding Level of Care Code New Pt Level 4 (29443) Diagnoses Difficulty sleeping G47.9 Periodic limb movements of sleep G47.61 Sleep talking G47.8 Time Spent (min) 30 Comment Evaluation of Obstructive Sleep Apnea Obstructive Sleep Apnea Patient is having a sleep study for: snoring, witnessed apneas, daytime sleepiness, leg movement and apnea Sleeping on side has: improves symptoms Patient goes to sleep at: Sides best to breath on, back it is difficult to sleep. Patient wakes at: 7am How does the patient feel upon waking: rested Patient has morning headaches: No Patient naps during the day: No Patient falls asleep inappropriately during the day: No Patient has drowsiness while driving: No Patient falls asleep while driving: No Patient has difficulty concentrating during activity such as watching TV or reading: Yes There is a family history of obstructive sleep apnea: Yes Narcoleptic symptoms: Reports unusual limb movements at night and Other (schizophrenia -and yelling, moaning sounds) Patient has had a polysomnogram: No CPAP/BIPAP use: not prescribed ASV / VPAP titration: No Sleep Questionnaire Difficulty falling asleep: No Difficulty staying asleep?: No Number of arousals: too many to count Snoring: Yes (loud) Witnessed apneas: Yes Gasping arousals: Yes Nocturia: No GERD: No Vivid dreams: Yes Acting out dreams: Yes Abnormal behavior in sleep: Yes Abnormal movements in sleep: Yes Morning headaches: No Excessive daytime sleepiness: No Daytime naps: No Restless legs: No Hallucinations: Yes Sleep paralysis: No Drop attacks: No Sleep Study: No CPAP: No
== END 2024-02-18 13:47 | disposition home or self-care (01) ==
PROVIDERS: PCP Student in an Organized Health Care Education/Training Program; Visit Provider Psychiatry & Neurology Neurology
DX: G47.9 Sleep disorder, unspecified (principal); G47.61 Periodic limb movement disorder; G47.8 Other sleep disorders
CPT/HCPCS: 99204

== ENCOUNTER → 2024-02-18 12:47 | Outpatient (BNVA) | payer MEDICARE, MEDICAID, SELFPAY | PROVIDERS: PCP Student in an Organized Health Care Education/Training Program; Visit Provider Psychiatry & Neurology Neurology | DX: G47.9 Sleep disorder, unspecified (principal); G47.8 Other sleep disorders; G47.61 Periodic limb movement disorder; R41.3 Other amnesia | CPT/HCPCS: 99202 ==

== ENCOUNTER 2024-03-26 09:11 | Outpatient (AMB) | payer MEDICARE, MEDICAID, SELFPAY ==
--- NOTE | 2024-03-26 09:48 | MHC.OFFVIS ---
Vital Signs 03/26/24 09:56 Height 5 ft 7 in Weight 211 lb 10.3 oz BMI 33.1 BP 120/64 Blood Pressure Location Rt brachial Position Sitting Respiration 18 Pulse 83 Pulse Source Pulse Oximeter Pulse Oximetry (%) 97 Oxygen Delivery Method Room Air Intake Visit Reasons: DDD Intake Note: Patient presents for DDD. E Commerce Solution Architect Required: Yes E Commerce Solution Architect Language: Assurance Officer Services: E Commerce Solution Architect Present E Commerce Solution Architect Name: Luciana [id number] Information Interpreted: non-clinical & clinical Allergies No Known Allergies Allergy (Verified 03/26/24 09:55) Medication List - Last Reconciled 03/26/24 by Warren Aiken MD atorvastatin 20 mg PO DAILY bupropion HCl SR 150 mg PO BID cetirizine 10 mg PO DAILY gabapentin 400 mg PO TID lidocaine 5% 1 patch topical DAILY prazosin 10 mg PO BEDTIME quetiapine (Seroquel) 300 mg PO DAILY tramadol 50 mg PO Q6H PRN HPI Comments Details: 49-year-old male lumbar osteoarthritis presents for follow-up. He states that he continues to take tramadol 50 mg 4 times a day. It continues to provide some relief. He states that he was evaluated by spine surgeon and he stated that no surgery was recommended. Patient does not want to pursue injections. He stated that when evaluated by his PCP last visit they suggested changing his tramadol to Percocet PFSH Medical History Memory loss Hyperlipidemia Depression Arthritis Family History Mother Diabetes Father Diabetes Cancer Maternal Grandmother Ovarian cancer Paternal Aunt Cancer Brother Cancer Social History Alcohol intake: current Alcohol intake frequency: does not drink Patient Tobacco Use Status: Current everyday Tobacco user Cigarettes Per Day: 8 Review of Systems Musc Reports back pain Physical Exam Vital Signs: Last Vital Signs Pulse 83 03/26/24 09:56 Resp 18 03/26/24 09:56 BP 120/64 03/26/24 09:56 Pulse Ox 97 03/26/24 09:56 Oxygen Delivery Method Room Air 03/26/24 09:56 BMI result Body Mass Index 33.1 Const General: cooperative, healthy appearing and comfortable Nutritional Appearance: obese Orientation/consciousness: patient oriented x3 Limitations: no limitations HEENT Head: Yes normocephalic and Yes atraumatic Resp Effort & Inspection: normal respiratory effort and able to speak in complete sentences Skin General skin exam: no rashes or lesions noted Neuro General: patient oriented x3 Extrem Other: Lumbar paraspinal muscle tenderness to palpation, worse on the right Positive straight leg raise test on the right Assessment & Plan Assessment & Plan (1) Degenerative disc disease at L5-S1 level: Code(s): M51.37 - Other intervertebral disc degeneration, lumbosacral region Category: Medical Plan: 49-year-old male with degenerative disc disease returns for follow-up. Remains on tramadol 4 times a day. He states that when evaluated by his PCP last visit they suggested changing his tramadol to Percocet. Patient has refused corticosteroid injections in the past. Patient states that when evaluated by spine surgeon, no surgery was recommended. continue with tramadol 50 mg q.i.d.. Follow-up in 6 months Plan I spent 16 minutes reviewing patient's chart, evaluating patient, counseling patient and documenting in the chart Coding Level of Care Code Est Pt Level 3 (29608) Diagnoses Degenerative disc disease at L5-S1 level M51.37
[2024-03-26 09:56] VITALS: BP 120/64; PULSE 83; RESP 18; O2SAT 97; BMI 33.1
== END 2024-03-26 10:25 | disposition home or self-care (01) ==
PROVIDERS: PCP Student in an Organized Health Care Education/Training Program; Visit Provider Student in an Organized Health Care Education/Training Program
DX: M51.379 Other intervertebral disc degeneration, lumbosacral region without mention of lumbar back pain or lower extremity pain (principal)
CPT/HCPCS: 99213

== ENCOUNTER → 2024-03-26 09:11 | Outpatient (BNVA) | payer MEDICARE, MEDICAID, SELFPAY | PROVIDERS: PCP Student in an Organized Health Care Education/Training Program; Visit Provider Student in an Organized Health Care Education/Training Program | DX: M51.379 Other intervertebral disc degeneration, lumbosacral region without mention of lumbar back pain or lower extremity pain (principal); Z79.891 Long term (current) use of opiate analgesic | CPT/HCPCS: 99212 ==

== ENCOUNTER → 2024-04-06 20:30 | Outpatient (REF) | payer MEDICARE, MEDICAID, SELFPAY ==
--- OUTSIDE RECORDS SUMMARY | 2024-04-06 21:22 | XMS_ITS ---
Author Organization [facility] Address [address] [place] [address] Care Team Providers Care Instantizer Operator Name Role Phone Morgan Orozco Primary Care Provider Chacho Prieto [phone] REASON FOR VISIT whole family sick Encounters Encounter Location Date Provider Diagnosis [facility] [address] [place] [address] 02/13/2023 Chacho Galeano PLAN OF TREATMENT No Information
--- OUTSIDE RECORDS SUMMARY | 2024-04-06 21:22 | XMS_ITS ---
Author Organization [facility] Address [address] [place] [address] Care Team Providers Care Oil Well Driller Name Role Phone Morgan Orozco Primary Care Provider Chacho Prieot Unavailable [phone] ALLERGIES No Known Allergies REASON FOR VISIT Patient presents today for colon screening MEDICATIONS Medication SIG (Take, Route, Frequency, Duration) Notes Start Date End Date Status buPROPion HCl ER (SR) 150 MG TAKE 1 TABLET BY MOUTH TWICE DAILY Oral for 30 Active QUEtiapine Fumarate 300 MG TAKE 1 TABLET BY MOUTH AT BEDTIME Oral for 30 Active traMADol HCl 50 MG TAKE 1 TABLET BY MOUTH EVERY 6 HOURS NEEDED FOR PAIN Oral for 30 M5137,Unavailabl e Active Prazosin HCl 5 MG TAKE 1 CAPSULE BY MOUTH AT BEDTIME NEEDED Oral for 30 Active SOCIAL HISTORY Tobacco Use: Social History Observation Description Date Details (start date - stop date) Current Smoker NA - NA Sex Assigned At : Social History Observation Description Sex Assigned At Unknown Tobacco Use/Smoking Question Answer Notes Patient is a current smoker How many cigarettes a day do you smoke? 6-10 Alcohol Screen Question Answer Notes Did you have a drink containing alcohol in the p ast year? No Points 0 Interpretation Negative PROBLEMS Problem Type ICD Code Onset Dates Problem Status W/U Status Risk SNOMED Code Notes Problem Elevated liver function tests (R94.5) Active confirmed Elevated liver enzymes level (056705693) Problem Fatty liver (K76.0) Active confirmed Fatty liver (467348579) Problem Colon cancer screening (Z12.11) Active confirmed Colon cancer screening (104566875) VITAL SIGNS BMI 36.47 kg/m2 06/19/2023 Blood pressure systolic 00 mm Hg 06/19/19 24 Blood pressure diastolic 00 mm Hg 024 Height 5 ft 6 in in 06/19/2023 Weight 226 lbs 06/19/2023 Encounters Encounter Location Date Provider Diagnosis [facility] [address] [place] [address] 06/19/2023 Chacho Galeano Elevated liver function tests R94.5 ; Fatty liver K76.0 and Colon cancer screening Z12.11 ASSESSMENTS Encounter Date Diagnosis Assessment Notes Treatment Notes Treatment Clinical Notes 06/19/2023 Elevated liver function tests (ICD-10 - R94.5) 06/19/2023 Fatty liver (ICD-10 - K76.0) 06/19/2023 Colon cancer screening (ICD-10 - Z12.11) PLAN OF TREATMENT Pending Test Test Name Order Date LIVER PROFILE 06/19/2023 IRON + IBC (FE) 06/19/2023 CBC w DIFF 06/19/2023 US ABD 06/19/2023 Prothrombin Time INR 06/19/2023 Ferritin 06/19/2023 Liver Fibrosis Pnl 06/19/2023 Hepatitis B,C Profile 06/19/2023 Future Test Test Name Order Date COLONOSCOPY 06/19/2023 Next Appt Details Follow Up: prn, Reason: Progress Notes * Examination Category Sub-Category Detail Notes General Examination GENERAL APPEARANCE: pleasant , well nourished, well developed, in no acute distress HEAD: EYES: sclera non-icteric EARS: NOSE: THROAT: NECK/THYROID: no cervical lymphade nopathy, neck supple HEART: S1, S2 normal CHEST: LUNGS: clear to auscultatio n bilaterally ABDOMEN: normal bowel sounds, no guarding or rigidity, no guarding or rigidity, no masses palpable, soft, nontender, nondistended NEUROLOGIC: alert and oriented SKIN: nonjaundiced, no spi santhosh angiomata EXTREMITIES: no edema PERIPHERAL PULSES: BACK: BREASTS: MUSCULOSKELETAL: MALE GENITOURINARY: LYMPH NODES: RECTAL EXAM: FEMALE GENITOURINARY: ORAL CAVITY: mucosa moist
--- OUTSIDE RECORDS SUMMARY | 2024-04-06 21:22 | XMS_ITS ---
Author Organization [facility] Address [address] [place] [address] Care Team Providers Care Photogrammetric Engineer Name Role Phone Morgan Orozco Primary Care Provider Chacho Prieto Unavailable [phone] REASON FOR VISIT screening colon PROBLEMS Problem Type ICD Code Onset Dates Problem Status W/U Status Risk SNOMED Code Notes Problem Diverticulosis of large intestine without perforation or abscess without bleeding (K57.30) Active confirmed Diverticul ar disease of colon (074262685) Encounters Encounter Location Date Provider Diagnosis [facility] [address] [place], [place] [id number] 09/19/2023 Chacho Galeano Encounter for scre ening colonoscopy Z12.11 ; Diverticulosis of large intestine without perforation or abscess without bleeding K57.30 and Other hemorrhoids K64.8 ASSESSMENTS Encounter Date Diagnosis Assessment Notes Treatment Notes Treatment Clinical Notes 09/19/2023 Encounter for screening colonoscopy (ICD-10 - Z12.11) 09/19/2023 Diverticulosis of large intestine without perforation or abscess without bleeding (ICD-10 - K57.30) 09/19/2023 Other hemorrhoids (ICD-10 - K64.8) PLAN OF TREATMENT No Information
== END ==
LOC: HO.SL 20:30
PROVIDERS: PCP Student in an Organized Health Care Education/Training Program; Visit Provider Physician Assistant Medical
DX: G47.61 Periodic limb movement disorder (principal); G47.8 Other sleep disorders; G47.9 Sleep disorder, unspecified
CPT/HCPCS: 95810

== ENCOUNTER → 2024-04-06 21:12 | Outpatient (BNV) | payer MEDICARE, MEDICAID, SELFPAY | PROVIDERS: PCP Student in an Organized Health Care Education/Training Program; Visit Provider Psychiatry & Neurology Neurology | DX: G47.33 Obstructive sleep apnea (adult) (pediatric) (principal) | CPT/HCPCS: 95810 ==

== ENCOUNTER 2024-06-04 12:56 | Outpatient (AMB) | payer MEDICARE, MEDICAID, SELFPAY ==
[2024-06-04 12:58] VITALS: BP 110/78; PULSE 90; O2SAT 98; BMI 34.6
--- NOTE | 2024-06-04 12:58 | MHC.OFFVIS ---
Vital Signs 06/04/24 12:58 Height 5 ft 7 in Weight 221 lb BMI 34.6 BP 110/78 Blood Pressure Location Rt brachial Position Sitting Pulse 90 Pulse Source Pulse Oximeter Pulse Oximetry (%) 98 Oxygen Delivery Method Room Air Intake Visit Reasons: Follow Up 3mo Intake Note: Patient presents for 3 month follow up. PSG done on 04/06/24. Looking for CPAP Vp Mobile Products Required: Yes Vp Mobile Products Name: [id number] Allergies No Known Allergies Allergy (Verified 06/04/24 13:03) HPI Comments Details: 49-year-old male lumbar osteoarthritis presents for follow-up visit. Certified Pot Operator Sera on IPAD, and his is with him today. PSG is 52/hr and Oxygen Matt 84%. Will start him on Bipap 20/10 with air touch [id number]. He states that he continues to take Tramadol 50 mg 4 times a day. It continues to provide some relief. He states that he was evaluated by spine surgeon and he stated that no surgery was recommended. Patient does not want to pursue injections. He stated that when evaluated by his PCP last visit they suggested changing his Tramadol to Percocet. Lumbar back pain and inflammation, 8/10, L5/S1 which radiates into the buttocks bilaterally. He has trouble staying asleep, he is in bed by midnight, and wakes up at 7am, with 3 bathroom breaks, he wakes up screaming and crying at night. He moves his limbs all night long per his . RLS: he continues to have bilateral feet numbness and severe cramps at night, he denies numbness or tingling. He is being managed by Dr. Conway for Schizophrenia on Seroquel 300mg PO. His mood is okay with Buproprion 150mg BID for anxiety. He is having trouble losing weight due to limited exercise capability and LBP. He smokes 8-10 cigarettes a day and 4-5 blunts of MJ a night to sleep. [facility] Medical History Memory loss Hyperlipidemia Depression Arthritis Family History Mother Diabetes Father Diabetes Cancer Maternal Grandmother Ovarian cancer Paternal Aunt Cancer Brother Cancer Social History Alcohol intake: current Alcohol intake frequency: does not drink Patient Tobacco Use Status: Current everyday Tobacco user Cigarettes Per Day: 8 Review of Systems ENT Reports Normal hearing present Neuro Reports Normal hearing present Physical Exam Vital Signs: Last Vital Signs Pulse 90 06/04/24 12:58 BP 110/78 06/04/24 12:58 Pulse Ox 98 06/04/24 12:58 Oxygen Delivery Method Room Air 06/04/24 12:58 BMI result Body Mass Index 34.6 Const General: cooperative, comfortable and no acute distress Nutritional Appearance: average body habitus and obese Orientation/consciousness: patient oriented x3 HEENT Teeth and gingiva: other (Mallampti score of 4) Eyes Pupils: Equal, round and reactive pupils present Neck Neck: Yes full ROM Resp Effort & Inspection: normal respiratory effort and able to speak in complete sentences Neuro General: patient oriented x3 and deep tendon reflexes 2+ bilaterally Cranial nerves: Yes CN's II-XII intact bilaterally, Yes Equal, round and reactive pupils present, Yes Normal accommodation reflex present, Yes Bilaterally intact EOM present, Yes Normal facial strength present, Yes Midline tongue present, Yes Normal hearing present, Yes Ability to bilaterally rotate head present and Yes Ability to bilaterally elevate shoulders present Cognition (Neuro): normal cognition Gait exam (Neuro): Normal gait present Motor exam (neuro): 5/5 motor strength present throughout, Pronator motor function not present and Normal motor muscle tone present throughout Deep tendon reflexes (DTR's): Right triceps reflex intensity grade: 2+, Left triceps reflex intensity grade: 2+, Rt Biceps (C5, C6): 2+, Left biceps reflex intensity grade: 2+, Right brachioradialis reflex intensity grade: 2+, Left brachioradialis reflex intensity grade: 2+, Right patellar reflex intensity grade: 2+ and Left patellar reflex intensity grade: 2+ Coordination: [id number] test normal Results Reviewed Results Reviewed: PSG Completed with titration study: AHI 52/hr O2 Matt 84% -Bipap 20/10 with air touch F20 mask Assessment & Plan Assessment & Plan (1) Periodic limb movements of sleep: Code(s): G47.61 - Periodic limb movement disorder Category: Medical (2) Difficulty sleeping: Code(s): G47.9 - Sleep disorder, unspecified Category: Medical (3) Sleep talking: Code(s): G47.8 - Other sleep disorders Category: Medical (4) Degenerative disc disease at L5-S1 level: Code(s): M51.37 - Other intervertebral disc degeneration, lumbosacral region Category: Medical Plan Sleep difficulties F/U in 3 months for compliance Bipap order is sent: AHI 52/hr O2 Matt 84% -Bipap 20/10 with air touch F20 mask. Fatigue Reviewed labs, will start him on: Magnesium 400mg PO daily at bedtime. PLMD will monitor Patient declined PT for LBP today. Medications: New magnesium oxide 400 mg PO DAILY 90 days 90 tabs 3RF G47.61 - Periodic limb movement disorder Patient Instructions: Sleep Hygiene provided: set a scheduled bedtime and wake time to help regulate the circadian rhythm and balance the release of pituitary hormones. Sleep in a dark room, temperatures below 68 degrees, and no devices n bed. Limit caffeinated products 6 hours prior to bed, and limit fluids 2-4 hours prior to bed. Gentle night yoga, diffusing essential oils, and playing soft music can be relaxing. RLS: Start OTC Rest less leg cream, or bengay, tiger balm, and or icy hot and massages. May try weighted blankets and or diclofenac otc Voltran gel along with Lidocaine patches. Coding Level of Care Code Est Pt Level 4 (67198) Diagnoses Periodic limb movements of sleep G47.61 Difficulty sleeping G47.9 Sleep talking G47.8 Degenerative disc disease at L5-S1 level M51.37
== END 2024-06-04 13:37 | disposition home or self-care (01) ==
LOC: HO.HSMS 12:57
PROVIDERS: PCP Student in an Organized Health Care Education/Training Program; Visit Provider Physician Assistant Medical
DX: G47.61 Periodic limb movement disorder (principal); G47.9 Sleep disorder, unspecified; G47.8 Other sleep disorders; M51.372 Other intervertebral disc degeneration, lumbosacral region with discogenic back pain and lower extremity pain
CPT/HCPCS: 99214

== ENCOUNTER → 2024-06-04 12:56 | Outpatient (BNVA) | payer MEDICARE, MEDICAID, SELFPAY | PROVIDERS: PCP Student in an Organized Health Care Education/Training Program; Visit Provider Physician Assistant Medical | DX: M51.379 Other intervertebral disc degeneration, lumbosacral region without mention of lumbar back pain or lower extremity pain (principal); G47.61 Periodic limb movement disorder; G47.8 Other sleep disorders | CPT/HCPCS: 99212 ==

== ENCOUNTER 2024-09-03 14:18 | Outpatient (AMB) | payer MEDICARE, MEDICAID, SELFPAY ==
[2024-09-03 14:20] VITALS: BP 104/66; PULSE 88; O2SAT 97; BMI 28.3
--- NOTE | 2024-09-03 14:20 | A.OFFVIS_ITS ---
Vital Signs 09/03/24 14:20 Height 5 ft 7 in Weight 180 lb 8 oz BMI 28.3 BP 104/66 Blood Pressure Location Lt brachial Position Sitting Pulse 88 Pulse Source Pulse Oximeter Pulse Oximetry (%) 97 Oxygen Delivery Method Room Air Intake Visit Reasons: 3 mnts f/u Intake Note: Patient presents follow up PLM/Sleep. Pt states he has an appt on 09/10/24 for him to get his CPAP. Pt states he is overall feeling well. Accompanied by: Significant Other Allergies No Known Allergies Allergy (Verified 09/03/24 14:20) HPI Comments Details: 49-year-old male with Lumbar pain, is here for a f/u visit for LILIA. His Harinder- is here with him and helps with history. PSG c/w AHI of 52/hr and Oxygen Matt to 84%. Will start him on Bipap 20/10 with air touch [id number]. September 10 picks up bipap machine to start therapy. He lost 40lbs FH+ of stroke father 48, passed d/t cancer 77, and mother alzheimers passed at 60. Brother bone cancer passed at the age of 11. He has trouble staying asleep, he is in bed by midnight, and wakes up at 7am, with 3 bathroom breaks, he wakes up screaming and crying at night. He moves his limbs all night long per his . He is unable to sit up straight due to sciatic pain and gets up to move around due to pain. He is able to sleep longer with the gabapentin and tramadol and he is able sleep better due to relief. Patient declines corticosteroid injections in his lumbar spine by pain management, pain is 8/10, L5/S1 which radiates into the buttocks bilaterally. (sciatica) RLS: he continues to have bilateral feet numbness and severe cramps at night, he denies tingling or electric shock like pain. Mood can be irritable, and is well managed with Buproprion 150mg BID for anxiety. He is being managed by Dr. Conway for Schizophrenia on Seroquel 300mg PO and prazosin 10mg for sleep. He smokes 8-10 cigarettes a day and smokes 4-5 blunts of MJ a night to help him fall asleep and stay asleep. He is trying to taper off of the cigarettes and the MJ. [facility] Medical History Memory loss Hyperlipidemia Depression Arthritis Family History Mother Diabetes Father Diabetes Cancer Maternal Grandmother Ovarian cancer Paternal Aunt Cancer Brother Cancer Social History Alcohol intake: current Alcohol intake frequency: does not drink Patient Tobacco Use Status: Current everyday Tobacco user Cigarettes Per Day: 8 Substance Use Type: Marijuana Review of Systems ENT Reports Normal hearing present Neuro Reports Normal hearing present Physical Exam Vital Signs: Last Vital Signs Pulse 88 09/03/24 14:20 BP 104/66 09/03/24 14:20 Pulse Ox 97 09/03/24 14:20 Oxygen Delivery Method Room Air 09/03/24 14:20 BMI result Body Mass Index 28.3 Const General: cooperative, comfortable and no acute distress Nutritional Appearance: average body habitus and obese Orientation/consciousness: patient oriented x3 HEENT Teeth and gingiva: other (Mallampti score of 4) Eyes Pupils: Equal, round and reactive pupils present Neck Neck: Yes full ROM Resp Effort & Inspection: normal respiratory effort and able to speak in complete sentences Neuro Other: Lumbar pain, sciatica? General: patient oriented x3 and deep tendon reflexes 2+ bilaterally Cranial nerves: Yes CN's II-XII intact bilaterally, Yes Equal, round and reactive pupils present, Yes Normal accommodation reflex present, Yes Bilaterally intact EOM present, Yes Normal facial strength present, Yes Midline tongue present, Yes Normal hearing present, Yes Ability to bilaterally rotate head present and Yes Ability to bilaterally elevate shoulders present Cognition (Neuro): normal cognition Gait exam (Neuro): Normal gait present Motor exam (neuro): 5/5 motor strength present throughout, Pronator motor function not present and Normal motor muscle tone present throughout Deep tendon reflexes (DTR's): Right triceps reflex intensity grade: 2+, Left triceps reflex intensity grade: 2+, Rt Biceps (C5, C6): 2+, Left biceps reflex intensity grade: 2+, Right brachioradialis reflex intensity grade: 2+, Left brachioradialis reflex intensity grade: 2+, Right patellar reflex intensity grade: 2+ and Left patellar reflex intensity grade: 2+ Coordination: [id number] test normal Results Reviewed Results Reviewed: Split night study PSG c/w AHI of 52/hr and Oxygen Nadirs to 84%. Will start him on Bipap 20/10 with air touch [id number]. NCS/EMG for bilateral sciatic pain Assessment & Plan Assessment & Plan (1) LILIA treated with BiPAP: Code(s): G47.33 - Obstructive sleep apnea (adult) (pediatric) Category: Medical (2) Degenerative disc disease at L5-S1 level: Code(s): M51.37 - Other intervertebral disc degeneration, lumbosacral region Category: Medical Plan: EMG/NCS sciatica (3) Lumbar pain with radiation down both legs: Comment: sciatica bilateral Code(s): M54.50 - Low back pain, unspecified; M79.604 - Pain in right leg; M79.605 - Pain in left leg Category: Medical (4) Periodic limb movements of sleep: Code(s): G47.61 - Periodic limb movement disorder Category: Medical (5) Fatigue: Code(s): R53.83 - Other fatigue Category: Medical Qualifiers: Fatigue type: chronic, unspecified Qualified Code(s): R53.82 - Chronic fatigue, unspecified (6) Sleep talking: Code(s): G47.8 - Other sleep disorders Category: Medical Plan Severe lilia treated with bipap. Bipap machine black pickler September 10. Fatigue Reviewed labs, will start him on: Magnesium 400mg PO daily at bedtime and B6 200mg po daily at bedtime. PLMD + RLS will monitor, continue 400mg gabapentin TID Patient declines PT today. Bilateral Sciatica pain Lumbar L5/S1 NCS / EMG Orders: Orders NE nerve conduction velocity Today M51.37 - Other intervertebral disc degeneration, lumbosacral region Comprehensive Met. Panel Today R53.83 - Other fatigue Ferritin Today R53.83 - Other fatigue Hemoglobin A1c Today R53.83 - Other fatigue Homocysteine Today G47.9 - Sleep disorder, unspecified, R53.83 - Other fatigue Lipid Panel with Reflex Today R53.83 - Other fatigue Methylmalonic Acid Today G47.9 - Sleep disorder, unspecified, R53.83 - Other fatigue NE electromyogram (EMG) Today G89.29 - Other chronic pain, M51.37 - Other intervertebral disc degeneration, lumbosacral region, M54.50 - Low back pain, unspecified, M79.604 - Pain in right leg, M79.605 - Pain in left leg Complete Blood Count no Diff Today R53.83 - Other fatigue IRON PROFILE Today G47.9 - Sleep disorder, unspecified, R53.83 - Other fatigue Vitamin D 25-OH Total Today R53.83 - Other fatigue Vitamin B12 and Folate Today R53.83 - Other fatigue TSH reflex Free T4 Today R53.83 - Other fatigue Patient Instructions: Sleep Hygiene provided: set a scheduled bedtime and wake time to help regulate the circadian rhythm and balance the release of pituitary hormones. Sleep in a dark room, temperatures below 68 degrees, and no devices n bed. Limit caffeinated products 6 hours prior to bed, and limit fluids 2-4 hours prior to bed. Gentle night yoga, diffusing essential oils, and playing soft music can be relaxing. Coding Level of Care Code Est Pt Level 4 (92828) Diagnoses LILIA treated with BiPAP G47.33 Degenerative disc disease at L5-S1 level M51.37 Lumbar pain with radiation down both legs M54.50; M79.604; M79.605 Periodic limb movements of sleep G47.61 Chronic fatigue R53.82 Fatigue type: chronic, unspecified Sleep talking G47.8 Time Spent (min) 30 Comment evaluation
--- OUTSIDE RECORDS SUMMARY | 2024-09-03 17:03 | XMS_ITS | Patient Health Record ---
Author Organization [facility] Address [address] [place] [address] Care Team Providers Care Financial Assistant Name Role Phone Morgan Orozco Primary Care Provider Chacho Prieto Unavailable [phone] Allergies No Known Allergies Reason For Referral No Information Medications Medication SIG (Take, Route, Frequency, Duration) Notes [...] AT BEDTIME NEEDED Oral for 30 Active Social History Tobacco Use: Social History Observation Description Date Details (start date - stop date) Current Smoker NA - NA Tobacco Use/Smoking Question Answer Notes Patient is a current smoker How many cigarettes a day do you smoke? 6-10 Alcohol Screen Question Answer Notes Did you have a drink containing alcohol in the p ast year? No Points 0 Interpretation Negative Section Notes: 1/2 PPD, smokes marijuana da ajit; no alcohol Problems Problem Type SNOMED Code ICD Code Onset Dates Problem Status W/U Status Risk Notes Problem Colon cancer screening (784809772) Colon cancer screening (Z12.11) Active confirmed Problem Diverticulosis o f large intestine without perforation or abscess without bleeding (K57.30) Active confirmed Problem Fatty liver (876757981) Fatty liver (K76.0) Active confirmed Problem Elevated liver enzymes level (626650250) Elevated liver function tests (R94.5) Active confirmed Encounters Encounter Location Date Provider Diagnosis [facility] Outpatient [address] [place], [place] [id number] 09/19/2023 Chacho Galeano Encounter for scre ening [...] hemorrhoids (ICD-10 - K64.8) Plan Of Treatment Pending Test Test Name Order Date LIVER PROFILE 06/19/2023 IRON + IBC (FE) 06/19/2023 CBC w DIFF 06/19/2023 US ABD 06/19/2023 Prothrombin Time INR 06/19/2023 Ferritin 06/19/2023 Liver Fibrosis Pnl 06/19/2023 Hepatitis B,C Profile 06/19/2023 Future Test Test Name Order Date COLONOSCOPY 06/19/2023 Insurance Providers Payer Name Payer Address Payer Phone Subscriber Number Group Number Insured Name Patient Relationship to Insured Coverage Start Date Coverage End Date MEDICARE OF [place] [address] [place] [id number] [phone] [id number] MADELINE VALLEJO Self - patient is the insured MEDICAID OF [employer] [address] [place] [address] [id number] MADELINE VALLEJO Self - patient is the insured Medical (General) History Medical History History ICD Code 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
== END 2024-09-03 15:39 | disposition home or self-care (01) ==
LOC: HO.HSMS 14:19
PROVIDERS: PCP Student in an Organized Health Care Education/Training Program; Visit Provider Physician Assistant Medical
DX: G47.33 Obstructive sleep apnea (adult) (pediatric) (principal); M51.362 Other intervertebral disc degeneration, lumbar region with discogenic back pain and lower extremity pain; M54.31 Sciatica, right side; M54.32 Sciatica, left side; G47.61 Periodic limb movement disorder; R53.82 Chronic fatigue, unspecified; G47.8 Other sleep disorders
CPT/HCPCS: 99214

== ENCOUNTER → 2024-09-03 14:18 | Outpatient (BNVA) | payer MEDICARE, MEDICAID, SELFPAY | PROVIDERS: PCP Student in an Organized Health Care Education/Training Program; Visit Provider Physician Assistant Medical | DX: G47.33 Obstructive sleep apnea (adult) (pediatric) (principal); G47.61 Periodic limb movement disorder; G47.8 Other sleep disorders; R53.82 Chronic fatigue, unspecified; M51.371 Other intervertebral disc degeneration, lumbosacral region with lower extremity pain only; M54.50 Low back pain, unspecified; M79.604 Pain in right leg; M79.605 Pain in left leg | CPT/HCPCS: 99212 ==

== ENCOUNTER 2024-09-18 10:04 | Outpatient (REF) | payer MEDICARE, MEDICAID, SELFPAY ==
--- OUTSIDE RECORDS SUMMARY | 2024-09-18 10:43 | XMS_ITS | Encounter Summary ---
Author Organization [facility] Address [address] [facility] 7[address] [place] [address] Care Team Providers Care Banking Specialist Name Role Phone Teri Patel MD Primary Care Pro vider Encounter Details Date Type Department Care Team (Late st Contact Info) Description 02/05/2023 Abstract [facility] MEDICINE [address] [place] [address] Chelita Lee Social History Tobacco Use Types Packs/Day Years Used Date Smoking Tobacco: Every Day Cigarettes Passive Smoke Exposure: Current Comments:Started 18 y of age until now-smoking 10 cig a day -smoking for 29 years ----PQT a year calc 14.5 Alcohol Use Standard Drinks/Week Comments Yes 0 (1 standard drink = 0.6 oz pur e alcohol) social Depression Answer Date Recorded Patient Health Questionnaire-9 Score 0 12/06/2022 Housing Stability Answer Date Recorded What is your housing situation today? I do not have housing (Staying with others, in a hotel, in a assisted, living outside on the street, on a beach, in a car, or in a park 12/21/[address] you li ve. Do you have problems with any of the following? None of the above 12/21/2022 Food Insecurity Answer Date Recorded Within the past 12 months, y ou worried that your food would run out before you got money to buy more: Often true 01/08/2023 Within the past 12 months,th e food you bought just didn't last and you didn't have enough money to get more: Often true Transportation Answer Date Recorded In the past 12 months, has l ack of transportation kept you from medical appts, meetings, work or from getting things needed for daily living? No 01/08/2023 Utilities Answer Date Recorded In the past 12 months, has t he electric, gas, oil or water company threatened to shut off services in your home? No 01/08/2023 Depression Answer Date Recorded Patient Health Questionnaire-2 Score 0 12/06/2022 Sex and Gender Information Value Date Recorded Sex Assigned at Male 01/09/2022 10:30 AM EDT Legal Sex Male 10:30 AM EDT Gender Identity Male 01/09/2022 10:30 AM EDT Sexual Orientation Straight 01/09/2022 10 :30 AM EDT documented as of this encounter Plan of Treatment Upcoming Encounters Date Type Department Care Team (Late st Contact Info) Description 09/18/2024 1:45 PM EDT Office Visit [facility] [address] [place], [place] [phone] Raven Horton, OD [address] [place] [address] documented as of this encounter Visit Diagnoses Not on filedocumented in this encounter Additional Health Concerns Assessment Noted Time PHQ-9 Depression Total Score: 0 12/07/19 10:56 AM EDT documented as of this encounter Care Teams Banking Specialist Relationship Specialty Start Date End Date Teri Patel MD [address] [place] [id number] PCP - General Internal Medicine 09/04/22 documented as of this encounter
--- OUTSIDE RECORDS SUMMARY | 2024-09-18 10:43 | XMS_ITS | Patient Health Record ---
Author Organization [facility] Address [address] [place] [phone] Care Team Providers Care Shoe Lay Out Planner Name Role Phone Morgan Orozco Primary Care Provider Chacho Prieto Unavailable [phone] Allergies No Known Allergies Reason For Referral [...] Status Risk Notes Problem Colon cancer screening (778442675) Colon cancer screening (Z12.11) Active confirmed Problem Diverticular disease of colon (126004571) Diverticulosis of large intestine without perforation or abscess without bleeding (K57.30) Active confirmed Problem Fatty liver (486977888) Fatty liver (K76.0) Active confirmed Problem Elevated liver enzymes level (020447696) Elevated liver function tests (R94.5) Active confirmed Encounters Encounter Location Date Provider Diagnosis [facility] Out[place] [address] [place], [place] [phone] 09/19/2023 Chacho Galeano Encounter for scre ening [...] OF [place] [address] [place] [address] [phone] [id number] PARISH VALLEJOO Self - patient is the insured MEDICAID OF [facility] [address] [place] [address] [id number] VALLEJO MADELINE Self - patient is the insured Medical (General) History Medical History History ICD Code 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
[2024-09-18 14:17] LABS: Hematocrit 42.9 % (42.0-52.0); Hemoglobin 14.7 g/dl (14.0-18.0); Mean Corpuscular HGB Conc 34.3 g/dl (31.0-36.0); Mean Corpuscular Hemoglobin 30.7 pg (27.0-33.0); Mean Corpuscular Volume 89.6 fL (80.0-98.0); NRBC Abs Auto 0.000 X10*3/uL (0.0-0.012); NRBC Pct Auto 0.0 /100WBC (0.0-0.2); Platelet Count 241 X10*3/uL (160-400); Red Blood Count 4.79 X10*6/uL (4.60-5.80); White Blood Count 5.0 X10*3/uL (4.8-10.8)
[2024-09-18 14:26] LABS: Hemoglobin A1C 127.7838 umol/L; Total Hemoglobin (HGBA1C) 3779.1884 umol/L
[2024-09-18 14:55] LABS: Alanine Aminotransferase 17 U/L (0-40); Albumin Level 4.7 g/dL (3.5-5.0); Alkaline Phosphatase 71 U/L (39-117); Anion Gap 11 (12-20); Aspartate Amino Transferase 23 U/L (5-37); Blood Urea Nitrogen 19 mg/dL (9-16); Calcium 9.5 mg/dL (8.4-10.2); Carbon Dioxide 28 mmol/L (22-29); Chloride 105 mmol/L (96-108); Cholesterol 177 mg/dL (<200); Estimated Glomerular Filt Rate > 60; HDL Cholesterol 43 mg/dL (>40); Iron 58 mcg/dL (45-160); Percent Iron Saturation 20 % (15-50); Potassium 4.3 mmol/L (3.3-5.1); Sodium 140 mmol/L (135-145); Total Iron Binding Capacity 287 mcg/dL (228-428); Total Protein 7.5 g/dL (6.5-8.0); Triglycerides 58 mg/dL (<150); Unsaturated Iron Binding 229 ug/dL
[2024-09-18 15:03] LABS: Ferritin 169 ng/mL (20-250)
[2024-09-18 15:15] LABS: Folate 5.9 ng/mL (> or = 4.0); Vitamin B12 384 pg/mL (200-900)
[2024-09-18 15:28] LABS: Reflex LDLD? No
== END 2024-09-18 10:05 | disposition home or self-care (01) ==
LOC: HO.HKASLDS 10:04
PROVIDERS: Visit Provider Physician Assistant Medical
DX: R53.83 Other fatigue (principal); G47.9 Sleep disorder, unspecified
CPT/HCPCS: 36415; 80053; 80061; 82306; 82607; 82728; 82746; 83036; 83090; 83540; 83921; 84443; 85027

== ENCOUNTER 2024-10-20 12:42 | Outpatient (AMB) | payer MEDICARE, MEDICAID, SELFPAY ==
--- OUTSIDE RECORDS SUMMARY | 2024-10-20 12:44 | XMS_ITS | Encounter Summary ---
Author Organization [employer] [facility] Address [address] [facility] [address] [place] [address] Care Team Providers Care Supervisor Blast Furnace Name Role Phone Teri Patel MD Primary Care Pro vider Encounter Details Date Type Department Care Team (Late st Contact Info) Description 02/05/2023 Abstract [facility] MEDICINE [address] [place] [address] Chelita Lee Social History Tobacco Use Types [...] with others, in a hotel, in a detention, living outside on the street, on a [...] Care Team (Late st Contact Info) Description 11/27/2024 9:45 AM EDT Office Visit [facility] MEDICINE [address] [place] [phone] Teri Patel MD [address] [place] [phone] documented as of this encounter Visit Diagnoses Not on filedocumented in this encounter Additional Health Concerns Assessment Noted Time PHQ-9 Depression Total Score: 0 12/07/19 10:56 AM EDT documented as of this encounter Care Teams Supervisor Blast Furnace Relationship Specialty Start Date End Date Teri Patel MD [address] [place] [phone] PCP - General Internal Medicine 09/04/22 documented as of this encounter
--- NOTE | 2024-10-20 12:51 | MHC.OFFVIS ---
Vital Signs 10/20/24 12:57 Height 5 ft 7 in Weight 184 lb 6 oz BMI 28.9 BP 104/64 Blood Pressure Location Rt brachial Position Sitting Pulse 83 Pulse Source Pulse Oximeter Pulse Oximetry (%) 97 Oxygen Delivery Method Room Air Intake Visit Reasons: Discuss mask size Intake Note: Patient presents to discuss CPAP mask Deputy Director Of Finance Required: Yes Deputy Director Of Finance Language: Manager Workers [employer] Services: Deputy Director Of Finance Offered & Declined Deputy Director Of Finance Name: Accompanied by: Spouse Allergies No Known Allergies Allergy (Verified 10/20/24 13:00) HPI Comments Details: 49-year-old male with severe lilia, presents for compliance questions due to mask issues. His Harinder- is here with him and helps with history. PSG c/w AHI of 52/hr and Oxygen Matt to 84%. Will start him on Bipap 20/10 with air touch [id number]. He recently started therapy on bipap and has lost 40 pounds. He continues to have trouble with his mask and is unable to get a good seal, he says the mask does not fit his face properly. We discussed the options of chin straps and trying various masks as he will never have a perfect seal, however to improve the use with cpap liners which could make the leaks more tolerable at night along with using ear plugs if needed. He had a mask fitting and has a new mask, however does not like it. He goes to bed at midnight and wakes up at 7am, with 3 bathroom breaks, he wakes up screaming and crying at night. He moves his limbs all night long per his . He is unable to sit up straight due to sciatica, we reviewed his MRI, once again today. He is able to sleep for a longer duration with Gabapentin and Tramadol use. Patient declines corticosteroid injections in his lumbar spine by pain management, pain is 8/10, L5/S1 which radiates into the buttocks bilaterally. (sciatica) RLS: he continues to have bilateral feet numbness and severe cramps at night, he denies tingling or electric shock like pain. Mood can be irritable, and is managed with Buproprion 150mg BID for anxiety. He is being managed by Dr. Conway for Schizophrenia on Seroquel 300mg PO and prazosin 10mg for sleep. He smokes 8-10 cigarettes a day and smokes 4-5 blunts of MJ a night to help him fall asleep and stay asleep. He is trying to taper off of the cigarettes and the MJ. [facility] Medical History Memory loss Hyperlipidemia Depression Arthritis Family History Mother Diabetes Father Diabetes Cancer Maternal Grandmother Ovarian cancer Paternal Aunt Cancer Brother Cancer Social History Alcohol intake: current Alcohol intake frequency: does not drink Patient Tobacco Use Status: Current everyday Tobacco user Cigarettes Per Day: 8 Substance Use Type: Marijuana Review of Systems ENT Reports Normal hearing present Neuro Reports Normal hearing present Physical Exam Vital Signs: Last Vital Signs Pulse 83 10/20/24 12:57 BP 104/64 10/20/24 12:57 Pulse Ox 97 10/20/24 12:57 Oxygen Delivery Method Room Air 10/20/24 12:57 BMI result Body Mass Index 28.9 Const General: cooperative, comfortable and no acute distress Nutritional Appearance: average body habitus and obese Orientation/consciousness: patient oriented x3 HEENT Teeth and gingiva: other (Mallampti score of 4) Eyes Pupils: Equal, round and reactive pupils present Neck Neck: Yes full ROM Resp Effort & Inspection: normal respiratory effort and able to speak in complete sentences Neuro Other: Lumbar pain, sciatica? General: patient oriented x3 and deep tendon reflexes 2+ bilaterally Cranial nerves: Yes CN's II-XII intact bilaterally, Yes Equal, round and reactive pupils present, Yes Normal accommodation reflex present, Yes Bilaterally intact EOM present, Yes Normal facial strength present, Yes Midline tongue present, Yes Normal hearing present, Yes Ability to bilaterally rotate head present and Yes Ability to bilaterally elevate shoulders present Cognition (Neuro): normal cognition Gait exam (Neuro): Normal gait present Motor exam (neuro): 5/5 motor strength present throughout, Pronator motor function not present and Normal motor muscle tone present throughout Psych Appearance: well kempt Speech and movement: Normal speech and movement present and Other speech and movement exam findings present (Psych) (language barrier, mongolian speaking male) Thought process: Normal thought process present Thought content: Normal thought content present Assessment & Plan Assessment & Plan (1) LILIA treated with BiPAP: Comment: continue bipap use daily Code(s): G47.33 - Obstructive sleep apnea (adult) (pediatric) Category: Medical (2) Degenerative disc disease at L5-S1 level: Comment: NCS/EmG pending Code(s): M51.37 - Other intervertebral disc degeneration, lumbosacral region Category: Medical Plan: EMG/NCS sciatica (3) Lumbar pain with radiation down both legs: Comment: sciatica bilateral- declines pt/ declines pain management Code(s): M54.50 - Low back pain, unspecified; M79.604 - Pain in right leg; M79.605 - Pain in left leg Category: Medical (4) Periodic limb movements of sleep: Code(s): G47.61 - Periodic limb movement disorder Category: Medical (5) Fatigue: Code(s): R53.83 - Other fatigue Category: Medical Qualifiers: Fatigue type: chronic, unspecified Qualified Code(s): R53.82 - Chronic fatigue, unspecified (6) Sleep talking: Code(s): G47.8 - Other sleep disorders Category: Medical Plan Severe lilia treated with bipap. 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 He will change out masks and try once again with chin straps and liners to minimize leaks. Fatigue Reviewed labs, Magnesium 400mg PO daily at bedtime and B6 200mg po daily at bedtime. PLMD + RLS will monitor, continue 400mg gabapentin TID for a total of 1200mg po daily. Patient declines PT today and declines pain management. Bilateral Sciatica pain Lumbar L5/S1 NCS / EMG pending. Patient Instructions: Sleep Hygiene provided: set a scheduled bedtime and wake time to help regulate the circadian rhythm and balance the release of pituitary hormones. Sleep in a dark room, temperatures below 68 degrees, and no devices n bed. Limit caffeinated products 6 hours prior to bed, and limit fluids 2-4 hours prior to bed. Gentle night yoga, diffusing essential oils, and playing soft music can be relaxing. Call the office with questions, start using bipap daily and for >4 hours for compliance. F/u in 3 months. Coding Level of Care Code Est Pt Level 4 (70150) Diagnoses LILIA treated with BiPAP G47.33 Degenerative disc disease at L5-S1 level M51.37 Lumbar pain with radiation down both legs M54.50; M79.604; M79.605 Periodic limb movements of sleep G47.61 Chronic fatigue R53.82 Fatigue type: chronic, unspecified Sleep talking G47.8
[2024-10-20 12:57] VITALS: BP 104/64; PULSE 83; O2SAT 97; BMI 28.9
== END 2024-10-20 13:24 | disposition home or self-care (01) ==
PROVIDERS: PCP Student in an Organized Health Care Education/Training Program; Visit Provider Physician Assistant Medical
DX: G47.33 Obstructive sleep apnea (adult) (pediatric) (principal); M54.50 Low back pain, unspecified; M79.604 Pain in right leg; M79.605 Pain in left leg; G47.61 Periodic limb movement disorder; R53.82 Chronic fatigue, unspecified; G47.8 Other sleep disorders
CPT/HCPCS: 99214

== ENCOUNTER → 2024-10-20 12:42 | Outpatient (BNVA) | payer MEDICARE, MEDICAID, SELFPAY | PROVIDERS: PCP Student in an Organized Health Care Education/Training Program; Visit Provider Physician Assistant Medical | DX: G47.33 Obstructive sleep apnea (adult) (pediatric) (principal); M51.371 Other intervertebral disc degeneration, lumbosacral region with lower extremity pain only; M54.50 Low back pain, unspecified; M79.604 Pain in right leg; M79.605 Pain in left leg; G47.61 Periodic limb movement disorder; G47.8 Other sleep disorders; R53.82 Chronic fatigue, unspecified | CPT/HCPCS: 99212 ==

== ENCOUNTER 2024-12-05 08:48 | Outpatient (AMB) | payer MEDICARE, MEDICAID, SELFPAY ==
--- OUTSIDE RECORDS SUMMARY | 2023-09-19 03:30 | XMS_ITS ---
Author Organization [facility] Address [address] [place] [id number] Care Team Providers Care Architectural Representative Name Role Phone Morgan Orozco Primary Care Provider Chacho Prieto Unavailable [phone] REASON FOR VISIT screening colon Problems Problem Type SNOMED Code ICD Code Onset Dates Problem Status W/U Status Risk Notes Problem Diverticular disease of colon (669453501) Diverticulosis of large intestine without perforation or abscess without bleeding (K57.30) Active confirmed Encounters Encounter Location Date Provider [place] [facility] [place] [address] [place] [id number] 09/19/2023 Chacho Galeano Encounter for scre ening colonoscopy Z12.11 ; Diverticulosis of large intestine without perforation or abscess without bleeding K57.30 and Other hemorrhoids K64.8 Assessments Encounter Date Diagnosis (ICD Code) Assessment Notes Treatment Notes Treatment Clinical Notes Section Notes 09/19/2023 Encounter for screening colonoscopy (ICD-10 - Z12.11) 09/19/2023 Diverticulosis of large intestine without perforation or abscess without bleeding (ICD-10 - K57.30) 09/19/2023 Other hemorrhoids (ICD-10 - K64.8) Plan Of Treatment No Information Progress Notes * [place]:1975 (49 yo M)Acc No.[id number]:09/19/2023 COLON WITH MAC Patient: MADELINE JOHNSON Provider: Girma Galeano MD :1975 A ge:48 Y S ex:Male Date:09/19/2023 Address:[address] [place], [place] [phone] Pcp:Morgan Orozco Subjective: * Chief Complaints: * 1 . Screening colon. * Medical History: Objective: * Vitals: Assessment: * Assessment: 1. E ncounter for screening colonoscopy - Z12.11 (Primary) 2 . D iverticulosis of large intestine without perforation or abscess without bleeding - K57.30 3 .?Other hemorrhoids - K64.8 Plan: * Treatment: * Procedure Codes: G 0121 COLOREC CNCR SCR;COLNSCPY NO HI RSK, 0529F INTRVL 3+YRS PTS CLNSCP DOCD, 0528F RCMND FLW-UP 10 YRS DOCD * * The named appointment provid er may or may not be the originator of this progress note, and it is not deemed complete until electronically signed by the appointment provider. Sign off status: Pending * Provider: Girma Galeano MD Date: 0 09/19/2023 Generated for Gilberto grey/Saeid/Susieitting on: 0 12/05/2024 09:26 AM EDT
--- NOTE | 2024-12-05 08:53 | A.OFFVIS_ITS ---
Vital Signs 12/05/24 08:54 Height 5 ft 7 in Weight 189 lb 6 oz BMI 29.7 BP 104/58 L Blood Pressure Location Rt brachial Position Sitting Pulse 84 Pulse Source Pulse Oximeter Pulse Oximetry (%) 96 Oxygen Delivery Method Room Air Intake Visit Reasons: 3m follow up Intake Note: Patient presents follow up LILIA. Compliance in chart(days, >=4hrs-8%, Average usage-55min, IPAP-20cm, EPAP-10cm, Med Leaks-34.8, AHI-7.5). Atomic Welder Required: Yes Atomic Welder Language: [place] Services: Atomic Welder Offered & Declined Atomic Welder Name: spouse Information Interpreted: non-clinical & clinical Accompanied by: Spouse Allergies No Known Allergies Allergy (Verified 12/05/24 08:58) HPI Comments Details: 49-year-old male with severe lilia, presents for f/u of LILIA he is on Bipap therapy. His Harinder interprets and helps with history today. LILIA Compliance Report September 2024 to Nov 2024 Total use is / days >4hours is 8% Avg use is 55 min and increasing to 3 hours per night. IPAP 20cm and EPAP 24xeM27 Med leaks 34.8 and AHI is 7.5/hr Washes the mask, rinses hoses, changes filters and fills reservoir with water. Located within [facility] sent a technical support representative to the house because the machine was set up incorrectly, so training was provided and now he is able to use the machine daily at night and compliance continues to improve. His mask is fits better now, the leaks are minimal. We discussed the options of chin straps if leaks continue. He goes to bed at midnight and wakes up at 7am, with 2 bathroom breaks, and decreased episodes of screaming and crying at night. Snoring is eliminated with cpap use. He is able to sleep for a longer duration with Gabapentin and Tramadol. Patient sees pain management for lumbar pain and sciatica, pain is 8/10 at L5/S1 which radiates into the buttocks bilaterally. RLS: he has bilateral feet numbness with severe cramps at night that wake him up from sleep. He denies paresthesias or electric shock like pain sensations. Mood is managed with managed with Buproprion 150mg BID for anxiety, and managed by Dr. Conway for Schizophrenia with Seroquel 300mg PO and prazosin 10mg for sleep. He smokes 8-10 cigarettes a day, and 4-5 joints of MJ a night to induce sleep. He has been prescribed nicotine patches, gum, and medication for smoking cessation. He is trying to taper off of the cigarettes and the MJ. [facility] Medical History Memory loss Hyperlipidemia Depression Arthritis Family History Mother Diabetes Father Diabetes Cancer Maternal Grandmother Ovarian cancer Paternal Aunt Cancer Brother Cancer Social History Alcohol intake: current Alcohol intake frequency: does not drink Patient Tobacco Use Status: Current everyday Tobacco user Cigarettes Per Day: 8 Substance Use Type: Marijuana Review of Systems ENT Reports Normal hearing present Neuro Reports Normal hearing present Physical Exam Vital Signs: Last Vital Signs Pulse 84 12/05/24 08:54 BP 104/58 L 12/05/24 08:54 Pulse Ox 96 12/05/24 08:54 Oxygen Delivery Method Room Air 12/05/24 08:54 BMI result Body Mass Index 29.7 Const General: cooperative, comfortable and no acute distress Nutritional Appearance: average body habitus and obese Orientation/consciousness: patient oriented x3 HEENT Teeth and gingiva: other ([place] score of 4) Eyes Pupils: Equal, round and reactive pupils present Neck Neck: Yes full ROM Resp Effort & Inspection: normal respiratory effort and able to speak in complete sentences Neuro Other: Lumbar pain, sciatica? General: patient oriented x3, moves all extremities and deep tendon reflexes 2+ bilaterally Cranial nerves: Yes CN's II-XII intact bilaterally, Yes Equal, round and reactive pupils present, Yes Normal accommodation reflex present, Yes Bilaterally intact EOM present, Yes Normal facial strength present, Yes Midline tongue present, Yes Normal hearing present, Yes Ability to bilaterally rotate head present and Yes Ability to bilaterally elevate shoulders present Cognition (Neuro): normal cognition Gait exam (Neuro): Normal gait present Motor exam (neuro): 5/5 motor strength present throughout, Pronator motor function not present and Normal motor muscle tone present throughout Psych Appearance: well kempt Speech and movement: Normal speech and movement present and Other speech and movement exam findings present (Psych) (language barrier, cypriot speaking male) Thought process: Normal thought process present Thought content: Normal thought content present Results Reviewed Results Reviewed: LILIA Compliance Report September 2024 to Nov 2024 Total use is 27/74 days >4hours is 8% Avg use is 55 min and increasing to 3 hours per night. IPAP 20cm and EPAP [id number] Med leaks 34.8 and AHI is 7.5/hr Washes the mask, rinses hoses, changes filters and fills reservoir with water. Assessment & Plan Assessment & Plan (1) LILIA treated with BiPAP: Comment: continue bipap use daily Code(s): G47.33 - Obstructive sleep apnea (adult) (pediatric) Category: Medical (2) Degenerative disc disease at L5-S1 level: Code(s): M51.37 - Other intervertebral disc degeneration, lumbosacral region Category: Medical Plan: EMG/NCS sciatica (3) Lumbar pain with radiation down both legs: Comment: sciatica bilateral- declines pt/ declines pain management Code(s): M54.50 - Low back pain, unspecified; M79.604 - Pain in right leg; M79.605 - Pain in left leg Category: Medical (4) Periodic limb movements of sleep: Code(s): G47.61 - Periodic limb movement disorder Category: Medical (5) Fatigue: Code(s): R53.83 - Other fatigue Category: Medical Qualifiers: Fatigue type: chronic, unspecified Qualified Code(s): R53.82 - Chronic fatigue, unspecified (6) Sleep talking: Code(s): G47.8 - Other sleep disorders Category: Medical Plan Severe lilia treated with Bipap, compliance is reviewed with pt. and reviewed >4 hours nightly for efficacy and therapeutic effects. Fatigue Reviewed labs, Magnesium 400mg PO daily at bedtime and B6 200mg po daily at bedtime. PLMD + RLS will monitor, continue 400mg gabapentin TID for a total of 1200mg po daily. Patient declines PT today and is being followed by pain management. Bilateral Sciatica pain Lumbar L5/S1. Orders: Referrals Pain Management Referral M51.37 - Other intervertebral disc degeneration, lumbosacral region, M54.50 - Low back pain, unspecified, M79.604 - Pain in right leg, M79.605 - Pain in left leg Medications: Refilled magnesium oxide 400 mg PO DAILY 90 tabs 3RF 90 days G47.61 - Periodic limb movement disorder mecobalamin (vitamin B12) place tablet under tongue and allow to dissolve for at least30 secs before swallowing 1,000 mcg sublingual BEDTIME 90 tabs 0RF b12 deficiency 3 months MDD 1000mcg E53.8 - Deficiency of other specified B group vitamins Coding Level of Care Code Est Pt Level 4 (12715) Diagnoses LILIA treated with BiPAP G47.33 Degenerative disc disease at L5-S1 level M51.37 Lumbar pain with radiation down both legs M54.50; M79.604; M79.605 Periodic limb movements of sleep G47.61 Chronic fatigue R53.82 Fatigue type: chronic, unspecified Sleep talking G47.8
[2024-12-05 08:54] VITALS: BP 104/58; PULSE 84; O2SAT 96; BMI 29.7
--- OUTSIDE RECORDS SUMMARY | 2024-12-05 09:26 | XMS_ITS | Encounter Summary ---
Author Organization [employer] Address [address] [facility] 7 [place] [address] Care Team Providers Care Traffic Counter Name Role Phone Teri Patel MD Primary Care Pro vider Reason for Visit * Reason Onset Date Comments Reschedule 01/23/2023 Encounter Details Date Type Department Care Team (Late st Contact Info) Description 01/23/2023 Telephone [facility] MEDICINE [address] [place], [place] [phone] Teri Patel MD [address] [place], [place] [phone] Reschedule Social History Tobacco Use Types Packs/Day Years [...] with others, in a hotel, in a half-way, living outside on the street, on a [...] AM EDT documented as of this encounter Miscellaneous Notes * Telephone Encounter - April Marrero - 01/23/2023 11:22 AM EST Tc from pt requesting r/s 01/09/2023 f/u appt with PCP. documented in this encounter Plan of Treatment Not on file documented as of this encounter Visit Diagnoses Not on filedocumented in this encounter Additional Health Concerns Assessment Noted Time PHQ-9 Depression Total Score: 0 12/07/19 10:56 AM EDT documented as of this encounter Care Teams Traffic Counter Relationship Specialty Start Date End Date Teri Patel MD [address] [place] [id number] PCP - General Internal Medicine 09/04/22 documented as of this encounter
--- OUTSIDE RECORDS SUMMARY | 2024-12-05 09:26 | XMS_ITS | Encounter Summary ---
Author Organization [employer] Address [address] [facility] 7t [place] [address] Care Team Providers Care Cable Installer Name Role Phone Teri Patel MD Primary Care Pro vider Encounter Details Date Type Department Care Team (Late st Contact Info) Description 03/03/2024 Orders Only [facility] MEDICINE [address] [place] [address] Provider, MD Gomez Social History Tobacco Use Types Packs/Day Years Used Date Smoking Tobacco: Every Day Cigarettes Passive Smoke Exposure: Current Comments:Started 18 y of age until now-smoking 10 cig a day -smoking for 29 years ----PQT a year calc 14.5 Alcohol Use Standard Drinks/Week Comments Yes 0 (1 standard drink = 0.6 oz pur e alcohol) social Depression Answer Date Recorded Patient Health Questionnaire-9 Score 7 11/28/2023 Patient Health Questionnaire-9 Score 7 11/28/2023 Last PHQ-9: Questionnaire Data Not on file 0 11/28/2023 Housing Stability Answer Date Recorded What is your housing situation today? I have denise gomez 11/28/[address] you li ve. Do you have problems with any of the following? None of the above 11/28/2023 Food Insecurity Answer Date Recorded Within the past 12 months, y ou worried that your food would run out before you got money to buy more: Sometimes True 2023 Within the past 12 months,th e food you bought just didn't last and you didn't have enough money to get more: Sometimes True 11/28/2023 Transportation Answer Date Recorded In the past [...] Answer Date Recorded Patient Health Questionnaire-2 Score 2 11/28/2023 Internet Access Answer Date Recorded Internet Access Q1 Yes 11/28/2023 Internet Access Q2 Not on file 11/28/2023 Sex and Gender Information Value Date Recorded Sex Assigned at Male 01/09/2022 10:30 AM EDT Legal Sex Male 10:30 AM EDT Gender Identity Male 01/09/2022 10:30 AM EDT Sexual Orientation Straight 01/09/2022 10 :30 AM EDT documented as of this encounter Plan of Treatment Not on file documented as of this encounter Procedures Procedure Name Priority Date/Time Associated Diagnosis Comments HM COLONOSCOPY Routine 09/19/2023 3:31 PM EDT documented in this encounter Results * Hm Colonoscopy (09/19/2023 3:31 PM EDT) Historical Provider HEALTH MAINTENANCE Final Result documented in this encounter Visit Diagnoses Not on filedocumented in this encounter Additional Health Concerns Assessment Noted Time PHQ-9 Depression Total Score: 7 11/28/19 24 9:35 AM EDT documented as of this encounter Care Teams Cable Installer Relationship Specialty Start Date End Date Teri Patel MD [address] [place] [id number] PCP - General Internal Medicine 09/04/22 documented as of this encounter
--- OUTSIDE RECORDS SUMMARY | 2024-12-05 09:26 | XMS_ITS | Encounter Summary ---
Author Organization [employer] Address [address] [facility] 7t [place] [address] Care Team Providers Care Education Program Associate Name Role Phone Iraida Escalante Primary Care Provider Teri Jefferson MD Primary Care Pro vider Encounter Details Date Type Department Care Team (Late st Contact Info) Description 05/17/2022 Orders Only [facility] MEDICINE [address] [place], [place] [phone] Iraida Escalante FNP Social History Tobacco Use Types Packs/Day Years Used Date Smoking Tobacco: Never Assessed Sex and Gender Information Value Date Recorded Sex Assigned at Male 01/09/2022 10:30 AM EDT Legal Sex Male 10:30 AM EDT Gender Identity Male 01/09/2022 10:30 AM EDT Sexual Orientation Straight 01/09/2022 10 :30 AM EDT documented as of this encounter Plan of Treatment Not on file documented as of this encounter Visit Diagnoses Not on filedocumented in this encounter Care Teams Education Program Associate Relationship Specialty Start Date End Date Iraida Escalante FNP PCP - General Family Medicine 02/06/22 09/03/22 Teri Patel MD [address] [place], [place] [phone] PCP - General Internal Medicine 09/04/22 documented as of this encounter
--- OUTSIDE RECORDS SUMMARY | 2024-12-05 09:26 | XMS_ITS | Encounter Summary ---
Author Organization [employer] Address [address] [facility] 7 [place] [address] Care Team Providers Care Supervisor Plastic Sheets Name Role Phone Teri Patel MD Primary Care Pro vider Reason for Visit * Reason Onset Date Comments Med Refill 11/01/2023 Encounter Details Date Type Department Care Team (Late st Contact Info) Description 11/01/[address] [facility] MEDICINE [address] [place], [place] [phone] Teri Patel MD [address] [place], [place] [phone] Med Refill Social History Tobacco Use Types Packs/Day Years [...] with others, in a hotel, in a residential, living outside on the street, on a [...] encounter Miscellaneous Notes * Telephone Encounter - Eldon Redd - 11/01/2023 2:41 PM EDT TC from pt requesting medication refill. Medications needing refill : traMADol (Ultram) 50 MG tablet To be sent to: [id number] documented in this encounter Plan of Treatment Not on file documented as of this encounter Visit Diagnoses Not on filedocumented in this encounter Additional Health Concerns Assessment Noted Time PHQ-9 Depression Total Score: 0 12/07/19 10:56 AM EDT documented as of this encounter Care Teams Supervisor Plastic Sheets Relationship Specialty Start Date End Date Teri Patel MD [address] [place] [phone] PCP - General Internal Medicine 09/04/22 documented as of this encounter
--- OUTSIDE RECORDS SUMMARY | 2024-12-05 09:26 | XMS_ITS | Patient Health Record ---
Author Organization [facility] Address [address] [place] [id number] Care Team Providers Care Offset Plate Preparation Supervisor Name Role Phone Morgan Orozco Primary Care Provider Chacho Prieto Unavailable [phone] Allergies No Known Allergies Reason For Referral [...] Status Risk Notes Problem Colon cancer screening (225357572) Colon cancer screening (Z12.11) Active confirmed Problem Diverticular disease of colon (770348639) Diverticulosis of large intestine without perforation or abscess without bleeding (K57.30) Active confirmed Problem Fatty liver (258021664) Fatty liver (K76.0) Active confirmed Problem Elevated liver enzymes level (370519077) Elevated liver function tests (R94.5) Active confirmed Plan Of Treatment Pending Test Test Name [...] Date MEDICARE OF [place] [address] [place] [address] [phone] [id number] MADELINE VALLEJO Self - patient is the insured [facility] [address] [place] [phone] [id number] MADELINE VALLEJO Self - patient is the insured Medical (General) History Medical History History ICD Code HEPATIC STEATOSIS DISC DEGENERATION LUMBAR REGION SCHIZOPHRENIA Denies [place],DM,CVA,Lung disease,renal dise ase Surgical History Surgery Date(Month/Year)
--- OUTSIDE RECORDS SUMMARY | 2024-12-05 09:26 | XMS_ITS | Encounter Summary ---
Author Organization [employer] Address [address] [facility] 7t [place] [address] Care Team Providers Care Director Of Pediatric Rehabilitation Name Role Phone Teri Patel MD Primary Care Pro vider Encounter Details Date Type Department Care Team (Late st Contact Info) Description 02/05/2023 Abstract [facility] MEDICINE [address] [place] [address] Chelita Lee Social History Tobacco Use Types [...] with others, in a hotel, in a prison, living outside on the street, on a [...] documented as of this encounter Care Teams Director Of Pediatric Rehabilitation Relationship Specialty Start Date End Date Teri Patel MD [address] [place] [id number] PCP - General Internal Medicine 09/04/22 documented as of this encounter
--- OUTSIDE RECORDS SUMMARY | 2024-12-05 09:26 | XMS_ITS | Clinical Summary ---
Author Organization [employer] Address [address] [facility] [address] [place] [address] Care Team Providers Care Esol Teacher Name Role Phone Teri Patel MD Primary Care Pro vider Allergies No known active allergies Medications * This document contains information received from the source organization and may not represent a complete record from that organization. prazosin (Minipress) 5 MG capsule take 1 capsule by oral route every day at night Active cetirizine (ZyrTEC) 10 MG tablet take 1 tablet by oral route every day as needed for nasal allergies 90 tablet 07/31/19 24 Active atorvastatin (Lipitor) 20 MG tablet TAKE 1 TABLET(20 MG) BY MOUTH DAILY 90 tablet 1 02/04/20 24 Active nicotine (Nicoderm CQ) 7 MG/24HR patch Place 1 patch on the skin 1 (one) time each day at the same time. 42 patch 1 11/28/19 25 2024 Active nicotine polacrilex (Nicorette) 2 MG gum Chew 1 each (2 mg) every 2 (two) hours if needed for smoking cessation. 100 each 1 11/28/19 25 2024 Active lidocaine (Lidoderm) 5 % patchIndications: Degeneration of lumbar intervertebral disc Apply 1 patch topically Once per day. Remove & discard patch within 12 hours or as directed by MD. 30 patch 5 11/28/19 25 Active buPROPion (Wellbutrin) 75 MG tablet Take 1 tablet (75 mg) by mouth 2 times daily. 60 tablet 3 11/28/19 25 2025 Active gabapentin (Neurontin) 100 MG capsule Take 1 capsule (100 mg) by mouth 2 times daily. 180 capsule 11/28/19 25 Active QUEtiapine (SEROquel) 25 MG tablet Take 1 tablet (25 mg) by mouth at bedtime. 90 tablet 11/28/19 25 Active buPROPion SR (Wellbutrin SR) 150 MG 12 hr tablet Take 150 mg by mouth 2 times daily. 11/11/19 23 2024 Discontinued(O ther) QUEtiapine (SEROquel) 300 MG tablet Take 300 mg by mouth at bedtime. 11/11/19 23 2024 Discontinued(R eorder (will not trigger notification to Pharmacy)) lidocaine (Lidoderm) 5 % patchIndications: Degeneration of lumbar intervertebral disc Apply 1 patch topically Once per day. Remove & discard patch within 12 hours or as directed by MD. 30 patch 1 08/21/19 24 2024 Discontinued(R eorder (will not trigger notification to Pharmacy)) Varenicline Tartrate, Starter, (Chantix Starting ) 0.5 MG X 11 & 1 MG X 42 tablet therapy pack Take 1 tablet by mouth Once per day. Days 1-3: 0.5 mg PO qDay, Days 4-7: 0.5 mg PO BID, Day 8 to end of treatment: 1 mg PO BID 1 each 11/28/19 24 2024 Discontinued(O ther) varenicline (Chantix Continuing ) 1 MG tablet Take 1 tablet (1 mg) by mouth 2 times daily. Days 1-3: 0.5 mg PO qDay, Days 4-7: 0.5 mg PO BID, Day 8 to end of treatment: 1 mg PO BID 60 tablet 2 11/28/19 24 2024 Discontinued(O ther) nicotine (Nicoderm CQ) 7 MG/24HR patch Place 1 patch on the skin 1 (one) time each day at the same time. 30 patch 1 11/28/19 24 2024 Discontinued(O ther) gabapentin (Neurontin) 400 MG capsule TAKE 1 CAPSULE(400 MG) BY MOUTH EVERY 8 HOURS 90 capsule 2 03/26/19 25 2024 Discontinued(R eorder (will not trigger notification to Pharmacy)) Active Problems Problem Noted Date Diagnosed Date Diverticular disease of colon 11/29/2024 LILIA (obstructive sleep apnea) 11/29/2024 Overweight (BMI 25.0-29.9) 11/29/2024 ROXANA (generalized anxiety disorder) 11/27/2024 Hyperlipidemia 07/19/2023 Cannabis use disorder, moderate, dependence 11/11 Periodic limb movements of sleep 12/06/2022 Tobacco use 12/06/2022 Health care maintenance 12/06/2022 Degeneration of lumbar intervertebral disc 08/01 Steatosis of liver 08/01/2018 Chronic schizophrenia 01/04/2017 Resolved Problems Problem Noted Date Diagnosed Date Resolved Date Loud snoring 12/06/2022 11/29/2024 Chronic low back pain 01/04/20172022 Encounters * This document contains information received from the source organization and may not represent a complete record from that organization. Date Type Department Care Team Description 11/27/2024 9:45 AM EDT Office Visit [facility] [address], [place] [phone] Teri Patel MD Tobacco use (Primary Dx); Degeneration of lumbar intervertebral disc; Dietary counseling; Exercise counseling; Chronic schizophrenia (CMS/HCC); Loud snoring; LILIA (obstructive sleep apnea); ROXANA (generalized anxiety disorder); Health care maintenance; Overweight (BMI 25.0-29.9) 11/27/2024 Travel 11/26/2024 Telephone [facility] [address], [place] [phone] Teri Patel MD 11/20/2024 Patient Outreach [facility] [address], [place] [phone] Teri Patel MD Pre-visit Planning (SDOH Negative, Tobacco screening negative. ) 09/18/2024 1:45 PM EDT Office Visit [facility] OPTOMETRY [address], [place] [phone] Raven Horton, [place] Presbyopia (Primary Dx) 09/18/2024 Travel from Last 3 Months Immunizations Immunization Administration Dates Next Due Hep B, adult 11/28/2023,07/19/2023 Influenza injectable quadriv alent IIV4 with preservative 12/31/2017 Influenza injectable quadriv alent preservative free 12/06/2022,12/11/2019,02/04/2019,2016,04/03/2016 Influenza, IIV3, injectable 12/22/2020 Pneumococcal Conjugate PCV 20 12/06/2022 Tdap 02/04/2019 Family History Medical History Relation Name Comments Osteosarcoma Brother unspecified cancer Father Colon cancer Father's Brother Cervical cancer Father's Sister unspecified cancer Paternal Grandfather unspecified cancer Paternal Grandmother Relation Name Status Comments Brother Father Father's Brother Father's Sister Paternal Grandfather Paternal Grandmother Social History Tobacco Use Types Packs/Day Years Used Date Smoking Tobacco: Every Day Cigarettes Passive Smoke Exposure: Current Tobacco Cessation:Ready to Q uit: Not Asked; Counseling Given: Not Answered Comments:Started 18 y of age until now-smoking 10 cig a day -smoking for 29 years ----PQT a year calc 14.5 Alcohol Use Standard Drinks/Week Comments Yes 0 (1 standard drink = 0.6 oz pur e alcohol) social Depression Answer Date Recorded Patient Health Questionnaire-9 Score 0 11/27/2024 Patient Health Questionnaire-9 Score 0 11/27/2024 Last PHQ-9: Questionnaire Data Not on file 0 11/27/2024 Housing Stability Answer Date Recorded What is your housing situation today? I have denise patricia 11/28/[address] you li ve. Do you have problems with any of the following? None of the above 11/28/2023 Food Insecurity Answer Date Recorded Within the past 12 months, y ou worried that your food would run out before you got money to buy more: Never True 11/20/2024 Within the past 12 months,th e food you bought just didn't last and you didn't have enough money to get more: Never True 01/2025 Transportation Answer Date Recorded In the past [...] Date Recorded Patient Health Questionnaire-2 Score 0 11/27/2024 Internet Access Answer Date Recorded Internet Access Q1 Yes 11/28/2023 Internet Access Q2 Not on file 11/28/2023 Sex and Gender Information Value Date Recorded Sex Assigned at Male 01/09/2022 10:30 AM EDT Legal Sex Male 10:30 AM EDT Gender Identity Male 01/09/2022 10:30 AM EDT Sexual Orientation Straight 01/09/2022 10 :30 AM EDT Last Filed Vital Signs Vital Sign Reading Time Taken Comments Blood Pressure 118/68 11/27/2024 9:34 AM EDT Pulse 78 11/27/2024 9:34 AM EDT Temperature 36.2 C (97.1 F) 11/27/2024 9:34 AM EDT Respiratory Rate 20 11/27/2024 9:34 AM EDT Oxygen Saturation 98% 11/27/2024 9:34 AM EDT Inhaled Oxygen Concentration - - Weight 84.3 kg (185 lb 12.8 oz) 11/27/2024 9:34 AM EDT Height 171 cm (5' 7.32 ) 11/27/2024 9:34 AM EDT Body Mass Index 28.82 11/27/2024 9:34 AM EDT Plan of Treatment Health Maintenance Due Date Last Done Comments CT Colonography 1976 FIT DNA/Cologuard 1976 FIT 1976 FOBT 1976 Sigmoidoscopy 1976 Family Planning (PISQ) 1991 Hepatitis A Vaccines (1 of 2 - Risk 2-dose series) 1995 Hepatitis B Vaccines (3 of 3 - 19+ 3-dose series) 01/23/2024 11/28/2023, 07/19/2023 COVID-19 Vaccine ( season) 2024 03/16/2021, 06/21/2020, 05/24/2020 Influenza Vaccine (#1) 2024 3, 12/22/2020, 12/11/2019, Additional history exists SDOH Screening 11/20/2025 11/20/2024 Alcohol/Substance Use Screening 11/27/2025 11/27/2024 Depression Screening 11/27/2025 11/27/2024, 11/28/19 25 Disability Screening 11/27/2025 11/27/2024 Tobacco Screening 11/27/2025 11/27/2024 Zoster Vaccines (1 of 2) 2026 Lipid Panel 07/05/2028 07/06/2023 DTaP/Tdap/Td Vaccines (2 - Td or Tdap) 02/04/2029 02/04/2019 Colonoscopy 09/18/2033 09/19/2023 Colorectal Cancer Screening 09/18/2033 RSV Patients and Patients Aged 60 years or older (1 - 1-dose 75+ series) 2051 Pneumococcal Vaccine: Pediatrics (0 to 5 Years) and At-Risk Patients (6 to 49) Years Completed 12/06/2022 HIV Screening Completed 07/06/2023 Hepatitis C Screening Completed 07/06/2023 HIB Vaccines Aged Out No longer eligi ble based on patient's age to complete this topic HPV Vaccines Aged Out No longer eligi ble based on patient's age to complete this topic IPV Vaccines Aged Out No longer eligi ble based on patient's age to complete this topic Meningococcal B Vaccine Aged Out No l onger eligible based on patient's age to complete this topic Meningococcal Vaccine Aged Out No leonora alejandro eligible based on patient's age to complete this topic RSV under 20 months Aged Out No longe r eligible based on patient's age to complete this topic Rotavirus Vaccines Aged Out No longer eligible based on patient's age to complete this topic Procedures Procedure Name Priority Date/Time Associated Diagnosis Comments COLONOSCOPY Routine 09/19/2023 3:31 PM EDT HEPATITIS C AB W/REFL TO HCV RNA, QN, PCR Routine 07/06/2023 9:44 AM EDT HIV-1/2 ANTIBODY DIFFERENTIATION Routine 07/06/2023 9:44 AM EDT LIPID PANEL, STANDARD Routine 07/06/2023 9:44 AM EDT from Last 3 Months or Most Recently Relevant to Health Maintenance Results * Colonoscopy (09/19/2023 3:31 PM EDT) us Historical Provider HEALTH MAINTENANCE Final Result * HIV-1/2 Antibody Differentiation (07/06/2023 9:44 AM EDT) HIV 1 Antibody NEGATIVE [facility] Comment:THIS TEST PERFORMED AT:[facility] [id number] [place] [phone] DIRECTOR: CHARISMA GOODWIN MD HIV 2 Antibody NEGATIVE [facility] Comment: FINAL ASSAY INTERPRETATION: HIV Antibody NEGATIVENote: This assay is intended to be used as part of amulti-test HIV-1/HIV-2 diagnostic algorithm.These negative HIV-1/HIV-2 Antibody Differentiationassay results do not exclude early HIV infection inpatients with a repeatedly reactive PPA-slivdhmnVUN-3/2 Immunoassay screening test result, becausecirculating virus may be present prior to developmentof a detectable antibody response.If appropriate sample remains, HIV-1 RNA, QualitativeReal-Time PCR will be performed for confirmation ofacute or early HIV-1 infection. Final interpretationof the patient's HIV diagnostic status should not bemade until the entire testing algorithm is complete,including the HIV-1 RNA, Qualitative Real- Time PCRassay.PLEASE NOTE: This information has been disclosed toyou from records whose confidentiality may beprotected by state law. If your state requires suchprotection, then the state law prohibits you frommaking any further disclosure of the informationwithout the specific written consent of the personto whom it pertains, or as otherwise permitted by law.A general authorization for the release of medical orother information is NOT sufficient for this purpose.THIS TEST PERFORMED AT:[facility] [id number] [place] [phone] DIRECTOR: CHARISMA GOODWIN MD HIV-1 RNA TMA QUALITATIVE Not Detected [facility] Comment: HIV-1 RNA is not detected. No laboratory evidence ofHIV infection. The HIV-1 RNA, Qualitative Real-Time PCRassay is recommended for use as part of a pjkqk-qiipEOS-5/HIV-2 screening and diagnostic algorithm. Thisassay can also be used to resolve indeterminate HIV-1antibody assay results, and to test for HIV-1 infectionin patients less than 2 years old. When a 4thgeneration HIV multi-test screening and diagnosticalgorithm is used: If the test results include arepeatedly reactive HIV-1/2 Antigen/Antibody (4thgeneration) screen, followed by negative confirmatorytests for HIV-1 and 2 antibodies and HIV-1 RNA by PCR,the most likely interpretation is a non-specific( biological false positive ) reaction in the 4thgeneration screening assay. There is no currentlaboratory evidence of HIV infection. Repeat testingon a second specimen is not generally indicated, butmay be appropriate if there are known risk factors forrecent HIV exposure.THIS TEST PERFORMED AT:[facility] [id number] [facility] [place], [place] [phone] DIRECTOR: KAL RAMESH MD, PHD 07/06/2023 9:44 AM EDT 07/06/2023 11:31 AM EDT us Teri Gilliland MD HISTORICAL/NON OR DERABLE LABS Final Result Performing Organization Address [facility]/ZIP Co de Phone Number [facility] [address] [place] [phone] * Hepatitis C Antibody with Reflex to HCV, RNA, Quantitative, Real-Time PCR (07/06/2023 9:44 AM EDT) Pathologist [facility] Hepatitis C Antibody Nonreactive Nonreactive [facility] Comment:Antibodies to HCV no t detected; does not exclude early acuteHCV infection. 07/06/2023 9:44 AM EDT 07/06/2023 11:31 AM EDT us Teri Gilliland MD LAB BLOOD ORDERAB LES Final Result Performing Organization Address [facility]/ZIP Co de Phone Number [facility] [address] [place] [phone] * (ABNORMAL) Lipid Panel, Standard (07/06/2023 9:44 AM EDT) Triglycerides 154(H) <150 mg/dL [facility] Comment:Desirable Triglyceri de: less than 150 mg/dLBorderline High Triglyceride 150-199 mg/dLHigh Triglyceride: 200-499 mg/dLVery High Triglyceride: greater than or equal to 5OO mg/dL Cholesterol 197 <200 mg/dL [facility] Comment:Desirable Cholestero l: less than 200 mg/dLBorderline High Cholesterol: 200-239 mg/dLHigh Cholesterol: greater than 239 mg/dL LDL Cholesterol Calculated 133(H) <100 mg/dL [facility] Comment:Desirable LDL: less than 100 mg/dLNear Optimal/Above Optimal LDL: 110- 129 mg/dLBorderline High LDL: 130-159 mg/dLHigh LDL: 160-189 mg/dLVery High LDL: greater than or equal to 190 mg/dL HDL Cholesterol 34(L) >40 mg/dL [facility] Comment:Desirable HDL: great er than 40 mg/dL Note: This HDL assay may give artificially low results in patients with liver disease. 07/06/2023 9:44 AM EDT 07/06/2023 11:31 AM EDT Teri Gilliland MD LAB BLOOD ORDERAB LES Final Result [facility] [address] [place] [phone] from Last 3 Months or Most Recently Relevant to Health Maintenance [place] [address] [place] [address] [place] [phone] Care Teams Esol Teacher Relationship Specialty Start Date End Date Teri Patel MD [address] [place] [phone] PCP - General Internal Medicine 09/04/22
== END 2024-12-05 09:39 | disposition home or self-care (01) ==
LOC: HO.HSMS 08:49
PROVIDERS: PCP Student in an Organized Health Care Education/Training Program; Visit Provider Physician Assistant Medical
DX: G47.33 Obstructive sleep apnea (adult) (pediatric) (principal); M51.372 Other intervertebral disc degeneration, lumbosacral region with discogenic back pain and lower extremity pain; G47.61 Periodic limb movement disorder; R53.82 Chronic fatigue, unspecified; G47.8 Other sleep disorders
CPT/HCPCS: 99214

== ENCOUNTER → 2024-12-05 08:48 | Outpatient (BNVA) | payer MEDICARE, MEDICAID, SELFPAY | PROVIDERS: PCP Student in an Organized Health Care Education/Training Program; Visit Provider Physician Assistant Medical | DX: M79.604 Pain in right leg (principal); M79.605 Pain in left leg; G47.33 Obstructive sleep apnea (adult) (pediatric); Z99.89 Dependence on other enabling machines and devices; M51.370 Other intervertebral disc degeneration, lumbosacral region with discogenic back pain only; G47.61 Periodic limb movement disorder; R53.82 Chronic fatigue, unspecified; G47.8 Other sleep disorders | CPT/HCPCS: 99212 ==